=== PATIENT | male | born 1940 | race Caucasian/White ===

== ENCOUNTER → 2020-07-09 | Outpatient (CLI) | payer BC | LOC: CARD 09:00 | PROVIDERS: ATTEND Internal Medicine | DX: I08.0 Rheumatic disorders of both mitral and aortic valves (principal) | CPT/HCPCS: 93306 ==

== ENCOUNTER → 2020-07-16 | Outpatient (CLI) | payer BC ==
[~2020-07-16] VITALS: Ht 177 cm; Wt 102.0 kg
[~2020-07-16] MED LIST: REGADENOSON 0.4 MG/5 ML SYR (LEXISCAN) IV ONE
[2020-07-16] MEDS: CATHETER FLUSH 10 ML SYR IV PRN ×2 (07:03→08:14)
[2020-07-16 08:13] VITALS: BP 143/95
--- NOTE | 2020-07-16 08:16 | NUR ---
only one lexiscan administered. There were two on the oct. I tried to non administer one of them but clicked administered instead.
--- NOTE | 2020-07-16 12:40 | Cardiology Stress Test Report ---
Stress Test Report Date of Procedure/Referring: Date of Procedure: Jul 16, 2020 PCP Kristy jA DO Admitting Physician Kristy Aj DO Indications: Dyspnea Baseline Vital Signs Vital Signs Date Time Temp Pulse Resp B/P (MAP) Pulse Ox O2 Delivery O2 Flow Rate FiO2 07/16/20 08:13 91 14 143/95 (111) 98 Room Air Summary: Patient receive a resting and stress dose of Myoview, images were acquired and reviewed in the short axis view, horizontal long axis view and vertical long axis view. TID: 0.93 SSS: 2 SDS: 2 EF: 54 1. No ischemia or infarction on SPECT images 2. Normal left ventricular size, EF 54 percent SHOLA JAMES MD Jul 16, 2020 12:40
== END ==
LOC: CARD 07:00
PROVIDERS: ATTEND Internal Medicine
DX: R06.00 Dyspnea, unspecified (principal)
CPT/HCPCS: 78452; 93017

== ENCOUNTER → 2022-06-04 | Outpatient (CLI) | payer BC | LOC: CARD 10:00 | PROVIDERS: ATTEND Internal Medicine Cardiovascular Disease | DX: I11.9 Hypertensive heart disease without heart failure (principal) | CPT/HCPCS: 93306 ==

== ENCOUNTER 2022-09-08 08:31 | Day surgery (SDC) | payer BC ==
[~2022-09-08] VITALS: Ht 177.8 cm; Wt 105.5 kg
[2022-09-08] VITALS (12 sets, daily range): BP systolic 95–146; BP diastolic 63–87
[2022-09-08] MEDS ORDERED: LIDOCAINE 1% INJ 20 ML VIAL ONE (08:36)
[2022-09-08] MEDS ORDERED: HEParin (CATH LAB) 2,000 ML IV ONE (08:36)
[2022-09-08] MEDS ORDERED: NS IV 1000 ML 1,000 ML ONE (08:36)
[2022-09-08] MEDS ORDERED: NS IV 1000 ML 1,000 ML IV SCH ×2 (08:45→11:30)
--- NOTE | 2022-09-08 09:02 | Diagnostic Imaging Report ---
EXAM: CHEST 1 VIEW, AP/PA ONLY INDICATION: Dyspnea. COMPARISON: None. FINDINGS: Borderline heart size with normal central pulmonary vascularity. Elevation of the right hemidiaphragm. Mild atelectasis or infiltrate in the right lung base. No pleural effusion or pneumothorax. No acute osseous findings. IMPRESSION: 1. Elevation of the right hemidiaphragm with mild atelectasis or infiltrate right lung base. 2. Borderline heart size with normal pulmonary vascularity. Dictated by: Dictated on workstation # [id number]
[2022-09-08 09:50] LABS: BILIRUBIN,URINE NEGATIVE (NEGATIVE); CLARITY,URINE CLEAR; COLOR,URINE YELLOW; GLUCOSE, URINE (UA) NEGATIVE (NEGATIVE); KETONES,URINE NEGATIVE (NEGATIVE); LEUKOCYTE ESTERASE ,URINE 1+ (NEGATIVE); NITRITE,URINE NEGATIVE (NEGATIVE); PH,URINE 5.5 (5-9); PROTEIN,URINE NEGATIVE (NEGATIVE)
[2022-09-08] MEDS ORDERED: ATOR20TA66 PO (09:56)
[2022-09-08] MEDS ORDERED: METF-397 PO ×2 (09:56→11:29)
[2022-09-08] MEDS ORDERED: ENAL10TA16 PO (09:56)
[2022-09-08] MEDS ORDERED: ACET325T38 PO (09:56)
[2022-09-08] MEDS ORDERED: MELO15TA39 PO (09:56)
[2022-09-08] MEDS ORDERED: ASPI-1238 PO (09:56)
[2022-09-08] MEDS ORDERED: CALC-250 PO (09:56)
[2022-09-08] MEDS ORDERED: CLOT15CR28 TP (09:56)
[2022-09-08] MEDS ORDERED: ALLO300T2 PO (09:56)
[2022-09-08] MEDS ORDERED: CITA20TA9 PO (09:56)
[2022-09-08] MEDS ORDERED: FINA5TAB6 PO (09:56)
[2022-09-08] MEDS ORDERED: VENL75CA93 PO (09:56)
[2022-09-08] MEDS ORDERED: BACI1PAC28 TP (09:56)
[2022-09-08 09:58] LABS: HEMATOCRIT 36 % (40-54); HEMOGLOBIN 11.4 g/dL (13.3-17.7); MEAN CORPUSCULAR HEMOGLOBIN 31 pg (25-34); MEAN CORPUSCULAR HGB CONC 31 g/dL (32-36); MEAN CORPUSCULAR VOLUME 98 fL (80-99); MEAN PLATELET VOLUME 10.6 fL (9.0-12.2); PLATELET COUNT 227 10^3/uL (130-400); WHITE BLOOD COUNT 6.7 10^3/uL (4.3-11.0)
[2022-09-08] MEDS ORDERED: fentaNYL INJ 100 MCG/2 ML AMP ONE (10:00)
[2022-09-08] MEDS ORDERED: VERAPAMIL 5 MG/2 ML (CALAN) VIAL IV ONE (10:00)
[2022-09-08] MEDS ORDERED: MIDAZOLAM 5 MG/5 ML (VERSED) VIAL ONE (10:01)
[2022-09-08] MEDS ORDERED: HEParin 1000 UNIT/ML (10ML VIAL) FOR BOLUS ONE (10:01)
[2022-09-08] MEDS ORDERED: NITRO DRIP 25000 MCG/D5W 250 ML IV ONE (10:01)
[2022-09-08 10:02] LABS: BACTERIA,URINE NEGATIVE /HPF; SQUAMOUS EPITHELIAL CELL,UR RARE /HPF; WBC,URINE RARE /HPF
[2022-09-08 10:05] LABS: INR 0.9 (0.8-1.4); PROTHROMBIN TIME PATIENT 12.9 SEC (12.2-14.7)
[2022-09-08 10:13] LABS: ALBUMIN 3.7 GM/DL (3.2-4.5); BILIRUBIN,TOTAL 0.7 MG/DL (0.1-1.0); CALCIUM 10.1 MG/DL (8.5-10.1); CREATININE SERUM 1.03 MG/DL (0.60-1.30); TOTAL PROTEIN 6.8 GM/DL (6.4-8.2)
--- NOTE | 2022-09-08 10:20 | Cardiac Procedure Note-CS/ASA ---
Pre-Procedure Note Pre-Op Procedure Note Date of Available H&P: Aug 26, 2022 Date H&P Reviewed: Sep 08, 2022 Time H&P Reviewed: 10:19 History & Physical: H&P Reviewed, Patient Examed, No changes noted Pre-Operative Diagnosis: CAD Conscious Sedation Pre-Proced Time 10:20 ASA Score 3 For ASA 3 and 4: Consider anesthesia and medical clearance. Also, for patients with a history of failed moderate sedation consider anesthesia. Airway Lungs Heart ASA score ASA 1: a normal healthy patient ASA 2: a patient with a mild systemic disease (mid diabetes, controlled hypertension, obesity ASA 3: a patient with a severe systemic disease that limits activity (angina, COPD, prior Myocardial infarction) ASA 4: a patient with an incapacitating disease that is a constant threat to life (CHF, renal failure) ASA 5: a moribund patient not expected to survive 24 hrs. (ruptured aneurysm) ASA 6: a declared brain- patient whose organs are being harvested. For emergent operations, add the letter E after the classification Mallampati Classification Grade 3 Sedation Plan Analgesia, Amnesia, Plan communicated to team members, Discussed options with patient/fam, Discussed risks with patient/fam The patient is an appropriate candidate to undergo the planned procedure, sedation, and anesthesia. The patient immediately re-assessed prior to indication. SHOLA JAMES MD Sep 08, 2022 10:20
--- NOTE | 2022-09-08 11:30 | Discharge Inst-Post CATH ---
Discharge Inst-CATH/EP Problems Reviewed?: Yes Post Cardiac Cath/EP D/C Inst Follow Up/Plan Hold metformin for [address] Gr's office in 2 to 4 weeks <b>CARDIAC CATH/EP PROCEDURE DISCHARGE INSTRUCTIONS</b> ACTIVITY * Go Home directly and rest. * Limit activity of the leg (or wrist if it was used) for 7 days including aerobics, swimming, jogging, bicycling, etc. * Restrict stair-climbing for 7 days if possible, if not, climb up with your non-cath leg, then bring together on the same step. * Avoid lifting, pushing, pulling or excessive movement of the affected extremity for 7 days. * Customary sexual activity may be resumed after 2 days-use caution not to use a position that strains or causes pain to the affected extremity. * No driving for 24 hours. * NO SMOKING. * Avoid straining for bowel movements for 7 days. * Gentle walking on level ground is allowed. * Returning to work will depend on the type of procedure and the results. Your doctor will discuss this with you. CALL YOUR DOCTOR FOR ANY OF THE FOLLOWING: *If bleeding from the puncture site occurs- Apply gentle pressure to site with clean cloth and call your doctor or EMS. * If a knot or lump forms under the skin, increases in size, or causes pain. * If bruising appears to be worsening or moving further down your leg instead of disappearing. * Temperature above 101 F. CARE OF YOUR GROIN INCISION; * Bruising or purple discoloration of the skin near the puncture site is common. * You may shower only, no bathtub bathing for 5 days. Be careful to avoid slipping as your leg may feel stiff. * If a closure device was used on your femoral artery, please see the attached guide regarding care of the device and your leg. * Leave dressing on FOR 24 hours. CARE OF YOUR WRIST INCISION; * Bruising or purple discoloration of the skin near the puncture site is common. * You may shower. * DO NOT submerge wrist. * Leave dressing on FOR 24 hours. SHOLA GR MD Sep 08, 2022 11:30
--- NOTE | 2022-09-08 11:34 | Cardiac Cath Report ---
Cardiac Cath Report Physician (s)/Featheredge Machine Operator (s) Physician SHOLA JAMES MD Pre-Procedure Diagnosis Pre-Procedure Diagnosis: CAD Post-Procedure Note Procedure Start Date: Sep 08, 2022 Procedure Start Time: 11:30 Name of Procedure: Coronary angiogram Aortic root angiogram Aortic arch angiogram Findings/Procedure Note PROCEDURE NOTE: 81-year-old gentleman with aortic valve stenosis scheduled for cardiac catheterization possible PTCA. After explaining the procedure to the patient, all pros and cons were explained, all questions were answered. The patient signed the consent and then he was placed in the cardiac catheterization laboratory. Groin was prepped in SL fashion local anesthesia was used. Sheath placed in the right radial artery, [place] catheter was advanced and engaged the right and left coronary system, could not cross the aortic valve I attempted with Storq wire. Then placed the catheter in the aortic root and aortic root angiogram was done then pulled back to the aortic arch and aortic arch angiogram was done At the end of the procedure the sheath was removed. Vascular band was used FINDINGS: Hemodynamics LV did not cross the aortic valve Aorta 95/83 mean of 74 ANATOMY: Left Main is free of obstructive disease Left Anterior Descending slightly tortuous with mild disease nonobstructive disease Left Circumflex is dominant artery moderate in size with mild disease nonobstructive disease Ramus intermedius/high obtuse marginal branch has ostial 80 to 90% stenosis, the artery is about 1.5 to 2 mm in diameter. Right Coronary Artery is small nondominant artery with no obstructive disease Aortic root angiogram showed calcification of the aortic root and calcification of the aortic valve no dissection or aneurysm Aortic arch angiogram showed calcified aortic arch, no aneurysm or dissection. Origin of the brachiocephalic artery showed some tortuosity with no obstructive disease left carotid artery and left subclavian has no obstructive disease CONCLUSION: 1. 80 to 90% stenosis in the ostium of ramus intermedius/high obtuse marginal branch, smaller artery about 1.5 to 2 mm in diameter. 2. Otherwise nonobstructive disease with dominant circumflex system 3. Normal aortic root and aortic arch with calcification, no dissection or aneurysm DISCUSSION AND RECOMMENDATION: Patient has severe aortic valve stenosis scheduled for TAVR, will review his coronary anatomy, continue to maximize medical therapy. We will consider intervention on the ostium of the ramus intermedius if needed in the future Anesthesia Type: Conscious Sedation Estimated blood loss (mL): 20 ml Contrast Amount: 70 ml Total Radiation Dose: 502 mGy Post-Procedure Diagnosis Post-operative diagnosis: Aortic valve stenosis Coronary artery disease Hypertension Hyperlipidemia. SHOLA JAMES MD Sep 08, 2022 11:34
[2022-09-08] MEDS ORDERED: ACETAMINOPHEN 325 MG TABLET PO PRN (16:00)
[2022-09-08] MEDS ORDERED: VENlafaxine XR 75 MG (EFFEXOR XR) CAP PO SCH (17:00)
[2022-09-08] MEDS ORDERED: ENALAPRIL 10 MG (VASOTEC) TAB PO SCH (17:00)
[2022-09-08] MEDS ORDERED: ASPIRIN E.C. 81 MG (ECOTRIN) TAB PO SCH (17:00)
[2022-09-08] MEDS ORDERED: ALLOPURINOL 300 MG (ZYLOPRIM) TAB PO SCH (17:00)
[2022-09-08] MEDS ORDERED: FINASTERIDE (PROSCAR) 5 MG TAB PO SCH (21:00)
[2022-09-08] MEDS ORDERED: BACITRACIN ZINC TP SCH (21:00)
[2022-09-08] MEDS: BACITRACIN OINTMENT 28 GM TUBE TOP SCH (22:26)
[2022-09-09 03:36] VITALS: BP 123/65
[2022-09-09 07:59] VITALS: BP 146/65
--- NOTE | 2022-09-09 08:17 | Cardiology Progress Note ---
Subjective Date Seen by Provider: Sep 09, 2022 Time Seen by Provider: 08:15 Subjective/Events-last exam Patient was seen at bedside, sitting comfortably, no new complaint. Ready to go home Review of Systems General: No Chills, No Night Sweats, No Fatigue, No Malaise, No Appetite, No Other HEENT: No Head Aches, No Visual Changes, No Eye Pain, No Ear Pain, No Dysphas ia, No Sinus Congestion, No Post Nasal Drip, No Sore Throat, No Other Pulmonary: Dyspnea; No Cough, No Pleuritic Chest Pain, No Other Cardiovascular: No: Chest Pain, Palpitations, Orthopnea, Paroxysmal Noc. Dyspnea, Edema, Lt Headedness, Other Objective-Cardiology Exam Last Set of Vital Signs Vital Signs 09/09/22 07:59 Temp 36.5 Pulse 80 Resp 18 B/P (MAP) 146/65 (92) Pulse Ox 98 O2 Delivery Room Air I&O Intake and Output 09/08/22 23:59 Intake Total 240 ml Balance 240 ml Intake Oral 240 ml General: Alert, Oriented X3, Cooperative HEENT: Atraumatic, PERRLA Neck: Supple, No JVD, No Thyromegaly Lungs: Clear to Auscultation, Normal Air Movement Heart: Regular Rate, Normal S1, Normal S2, No Murmurs Abdomen: Normal Bowel Sounds, Soft, No Tenderness, No Hepatosplenomegaly, No Masses Extremities: No Clubbing, No Cyanosis, No Edema, Normal Pulses, No Tenderness/Swelling Skin: No Rashes, No Breakdown, No Significant Lesion Neuro: Normal Gait, Normal Speech, Strength at 5/5 X4 Ext, Normal Tone, Sensation Intact Psych/Mental Status: Mental Status NL, Mood NL Results Lab Laboratory Tests 09/08/22 09:35 A/P-Cardiology Admission Diagnosis Coronary artery disease Hypertension Hyperlipidemia. Assessment/Plan Coronary artery disease, 80 to 90% ostial ramus intermedius branch stenosis the artery is fairly small not amendable to intervention, conservative management is recommended Hypertension, continue to monitor blood pressure Hyperlipidemia, maintained on Lipitor 20 mg daily Diabetes mellitus, instructed to hold metformin for 48 hours Planning for discharge and follow-up as an outpatient SHOLA JAMES MD Sep 09, 2022 08:16
[2022-09-09] MEDS: BACITRACIN OINTMENT 28 GM TUBE TOP SCH (08:57)
[2022-09-09] MEDS ORDERED: NON-FORMULARY MEDICATION 1 EA EA (Meloxicam 15 MG) PO SCH (09:00)
[2022-09-09] MEDS ORDERED: MELOXICAM 7.5 MG (MOBIC) TABLET PO SCH (09:00)
[2022-09-09] MEDS ORDERED: VITAMIN D3 125 MCG (5,000 UNITS) CAPSULE PO SCH (09:00)
== END 2022-09-09 09:08 | disposition home or self-care (01) ==
LOC: CATH 08:31 → SDC 11:43 → 4TH 14:40 → EDPENDDISDT 09-09 08:00 → EDPENDDISTM 09-09 08:00 → CATH 09-09 09:08
PROVIDERS: ATTEND Internal Medicine Cardiovascular Disease
DX: I35.0 Nonrheumatic aortic (valve) stenosis (principal); I25.10 Atherosclerotic heart disease of native coronary artery without angina pectoris; I10 Essential (primary) hypertension; E78.2 Mixed hyperlipidemia; I49.3 Ventricular premature depolarization; E11.9 Type 2 diabetes mellitus without complications; F32.A Depression, unspecified; R53.83 Other fatigue; M48.00 Spinal stenosis, site unspecified; I65.23 Occlusion and stenosis of bilateral carotid arteries; Z87.891 Personal history of nicotine dependence; Z79.899 Other long term (current) drug therapy; Z79.84 Long term (current) use of oral hypoglycemic drugs
CPT/HCPCS: 36221; 36415; 71045; 80053; 80061; 81000; 85027; 85610; 85730; 87081; 93005; 93454; 93567

== ENCOUNTER 2023-05-21 21:10 | Inpatient (IN) | payer MEDICARE, BC ==
[~2023-05-21] VITALS: Ht 180.3 cm; Wt 104.3 kg
[~2023-05-21 21:10] MED LIST changes: +ACET325T38 PO; +ALLO300T2 PO; +ASPI-1238 PO; +ATOR20TA66 PO; +BACI1PAC28 TP; +CALC-250 PO; +CITA20TA9 PO; +CLOT15CR28 TP; +ENLP10T PO; +FINA5TAB6 PO; +MELO15TA39 PO; +METF-397 PO; -REGADENOSON 0.4 MG/5 ML SYR (LEXISCAN) IV ONE; +VENL75CA93 PO
[2023-05-21] MEDS ORDERED: ACETAMINOPHEN 500 MG TABLET PO PRN (21:45)
[2023-05-21 23:23] VITALS: BP 134/71
[2023-05-22] MEDS: D5 NS 1,000 ML IV SOLN 1,000 ML IV SCH ×4 (00:03→19:22)
[2023-05-22 03:30] VITALS: BP 110/57
[2023-05-22 06:06] LABS: POTASSIUM 4.2 MMOL/L (3.6-5.0)
[2023-05-22 06:07] LABS: CALCIUM 9.5 MG/DL (8.5-10.1)
[2023-05-22 06:11] LABS: CREATININE SERUM 1.43 MG/DL (0.60-1.30)
[2023-05-22] MEDS: VENlafaxine XR 75 MG (EFFEXOR XR) CAP PO SCH (06:16)
[2023-05-22] MEDS ORDERED: diphenhydrAMINE INJ 50 MG/ML VIAL IVP PRN (07:15)
[2023-05-22] MEDS ORDERED: ANTACID SUSPENSION 30 ML UDC PO PRN (07:15)
[2023-05-22] MEDS ORDERED: CALCIUM CARBONATE 500 MG CHEW TABLET PO PRN (07:15)
[2023-05-22] MEDS ORDERED: diphenhydrAMINE 25 MG TABLET PO PRN (07:15)
[2023-05-22] MEDS ORDERED: HYDROmorphone INJECTION 2 MG/ML VIAL IV PRN (07:15)
[2023-05-22] MEDS ORDERED: LACTULOSE SYRUP 10GM/15ML 30ML UDC PO PRN (07:15)
[2023-05-22] MEDS ORDERED: ONDANSETRON INJECTION 4 MG/2 ML (SDV) IV PRN (07:15)
[2023-05-22] MEDS ORDERED: ONDANSETRON 4 MG ORAL DISSOLVE TABLET PO PRN (07:15)
[2023-05-22] MEDS ORDERED: ACETAMINOPHEN 325 MG TABLET PO PRN (07:15)
[2023-05-22] MEDS ORDERED: BISACODYL 10 MG SUPPOSITORY PR PRN (07:15)
[2023-05-22] MEDS ORDERED: MILK OF MAGNESIA 400 MG/5 ML 30 ML UDC PO PRN (07:15)
[2023-05-22 07:21] LABS: BASOPHILS % (AUTO) 0 % (0-10); EOSINOPHILS % (AUTO) 0 % (0-10); HEMATOCRIT 31 % (40-54); HEMOGLOBIN 10.2 g/dL (13.3-17.7); LYMPHOCYTES # (AUTO) 1.1 10^3/uL (1.0-4.0); LYMPHOCYTES % (AUTO) 8 % (12-44); MEAN CORPUSCULAR HEMOGLOBIN 31 pg (25-34); MEAN CORPUSCULAR HGB CONC 33 g/dL (32-36); MEAN CORPUSCULAR VOLUME 93 fL (80-99); MEAN PLATELET VOLUME 10.9 fL (9.0-12.2); MONOCYTES % (AUTO) 7 % (0-12); NEUTROPHILS # (AUTO) 12.1 10^3/uL (1.8-7.8); NEUTROPHILS % (AUTO) 84 % (42-75); PLATELET COUNT 185 10^3/uL (130-400); WHITE BLOOD COUNT 14.3 10^3/uL (4.3-11.0)
[2023-05-22 07:24] LABS: ALBUMIN 3.3 GM/DL (3.2-4.5); POTASSIUM 4.2 MMOL/L (3.6-5.0)
[2023-05-22 07:25] LABS: CALCIUM 9.6 MG/DL (8.5-10.1)
[2023-05-22 07:26] LABS: TOTAL PROTEIN 5.8 GM/DL (6.4-8.2)
[2023-05-22 07:28] LABS: BILIRUBIN,TOTAL 1.9 MG/DL (0.1-1.0)
[2023-05-22 07:30] LABS: CREATININE SERUM 1.41 MG/DL (0.60-1.30)
[2023-05-22 07:39] VITALS: BP 134/68
[2023-05-22 08:19] LABS: BAND NEUTROPHILS 0 %; BASOPHILS % (MANUAL) 0 %; EOSINOPHILS % (MANUAL) 0 %; LYMPHOCYTES % (MANUAL) 6 %; MONOCYTES % (MANUAL) 5 %; NEUTROPHILS % (MANUAL) 89 %; RBC MORPH NORMAL
[2023-05-22] MEDS: SENNOSIDES 8.6 MG TABLET PO SCH ×2 (08:22→19:22)
[2023-05-22] MEDS: DOCUSATE SODIUM 100 MG CAPSULE PO SCH ×2 (08:22→19:22)
--- NOTE | 2023-05-22 11:47 | History & Physical ---
History of Present Illness HPI/Chief Complaint CC: Acute rhabdomyloysis after being found down outside for 22 hours HPI: This is an 82yoWM clinic patient of mine for the past 8 years who has a h/o HTN. HLP, DM and aortic stenosis who presented to [facility] after found down outside by his neighbor after he was heard crying out for help. Apparently he fell outside ~630pm Tuesday night and remained on the ground unable to get up until EMS was called. Rhabdomyolysis dx in [facility] and was found to need higher level of care so [facility] accepted transfer. He is currently resting but does become alert and tells me he is hungry. Daughter in [place] called to check on him. Source: patient, RN/MD, old records Exam Limitations: clinical condition Date Seen 05/22/23 Time Seen by a Provider: 11:00 Attending Physician Kristy Aj DO PCP Admitting Physician: Willis Rogel MD Attending Physician: Kristy Aj DO Referring Physician Date of Admission May 21, 2023 at 23:14 Home Medications & Allergies Home Medications Reviewed patient Home Medication Reconciliation performed by pharmacy medication reconciliations central processing technician and/or nursing. Patients Allergies have been reviewed. Allergies Allergies Coded Allergies No Allergy Information Available (Vamqpzndna63/2/20) Past Tnwlmpk-Fpoltg-Adcglg Hx Past Med/Social Hx: Reviewed Nursing Past Med/Soc Hx, Reviewed and Corrections made Patient Social History Marrital Status: Alcohol Use: Rarely Uses Smoking Status: Former Smoker Past Medical History Surgeries: Tonsillectomy Cardiac: Heart Murmur, High Cholesterol, Hypertension, Valvular Heart Disease Neurological: Neuropathy Musculoskeletal: Chronic Back Pain Psychosocial: Depression Review of Systems Constitutional: see HPI, malaise, weakness EENTM: no symptoms reported Respiratory: no symptoms reported Cardiovascular: no symptoms reported Gastrointestinal: no symptoms reported Genitourinary: no symptoms reported Musculoskeletal: back pain, joint pain Skin: no symptoms reported Psychiatric/Neurological: No Symptoms Reported All Other Systems Reviewed Negative Unless Noted: Yes Physical Exam Physical Exam Vital Signs Vital Signs - First Documented 05/21/23 05/21/23 23:14 23:23 Temp 37.6 Pulse 90 Resp 20 B/P (MAP) 134/71 (92) Pulse Ox 98 O2 Delivery Room Air Capillary Refill : Height, Weight, BMI Height: '" Weight: lbs. oz. kg; 31.37 BMI Method: General Appearance: No Apparent Distress, WD/WN, Chronically ill Eyes: Bilateral Eye Normal Inspection, Bilateral Eye PERRL HEENT: PERRL/EOMI, Normal ENT Inspection, Pharynx Normal Neck: Full Range of Motion, Normal Inspection, Non Tender, Supple, Carotid Bruit Respiratory: Chest Non Tender, Lungs Clear, Normal Breath Sounds, No Accessory Muscle Use, No Respiratory Distress Cardiovascular: Regular Rate, Rhythm, No Edema, No Gallop, No JVD, No Murmur, Normal Peripheral Pulses Gastrointestinal: Normal Bowel Sounds, No Organomegaly, No Pulsatile Mass, Non Tender, Soft Back: Normal Inspection, No CVA Tenderness, No Vertebral Tenderness Extremity: Normal Capillary Refill, Normal Inspection, Normal Range of Motion (limited due to pain "everywhere"), Non Tender, No Calf Tenderness, No Pedal Edema Neurologic/Psychiatric: Alert, Oriented x3, No Motor/Sensory Deficits, Normal Mood/Affect, purchaser II-XII Norm as Tested, Motor Weakness (generalized) Skin: Normal Color, Warm/Dry Lymphatic: No Adenopathy Results Results/Procedures Labs Laboratory Tests 05/22/23 05:40 Patient resulted labs reviewed. Assessment/Plan Admission Diagnosis Assessment: Found down outside after 22 hours Acute rhabdomylosis THIAGO HTN HLP DM Chronic lumbar stenosis Neuropathy Falls Plan: IVF Pain control PT OT Monitor creat Admission Status: Inpatient Order (span 2 midnights) (mahnaz) Reason for Inpatient Admission: KRISTY Gonsalez DO May 22, 2023 11:47
[2023-05-22 11:58] VITALS: BP 122/68
[2023-05-22 16:04] VITALS: BP 128/69
[2023-05-22 16:13] VITALS: BP 128/69
[2023-05-22] MEDS ORDERED: RT-Ipratropium/Albuterol NEB 3 ML VIAL INH PRN (16:15)
[2023-05-22 19:20] VITALS: BP 153/72
[2023-05-22] MEDS: MELATONIN 3 MG TABLET PO PRN (19:22)
[2023-05-22] MEDS: ALLOPURINOL 300 MG TABLET PO SCH (19:22)
[2023-05-22] MEDS: oxyCODONE IMMEDIATE RELEASE 5 MG TABLET PO PRN (21:36)
[2023-05-23] VITALS (7 sets, daily range): BP systolic 98–165; BP diastolic 55–77
[2023-05-23] MEDS: VENlafaxine XR 75 MG (EFFEXOR XR) CAP PO SCH (05:23)
[2023-05-23] MEDS: D5 NS 1,000 ML IV SOLN 1,000 ML IV SCH ×2 (05:23→15:16)
[2023-05-23 06:01] LABS: BASOPHILS % (AUTO) 0 % (0-10); EOSINOPHILS # (AUTO) 0.2 10^3/uL (0.0-0.3); EOSINOPHILS % (AUTO) 2 % (0-10); HEMATOCRIT 30 % (40-54); HEMOGLOBIN 9.7 g/dL (13.3-17.7); LYMPHOCYTES # (AUTO) 1.3 10^3/uL (1.0-4.0); LYMPHOCYTES % (AUTO) 13 % (12-44); MEAN CORPUSCULAR HEMOGLOBIN 31 pg (25-34); MEAN CORPUSCULAR HGB CONC 33 g/dL (32-36); MEAN CORPUSCULAR VOLUME 94 fL (80-99); MEAN PLATELET VOLUME 10.9 fL (9.0-12.2); MONOCYTES # (AUTO) 0.8 10^3/uL (0.0-1.0); MONOCYTES % (AUTO) 8 % (0-12); NEUTROPHILS # (AUTO) 7.5 10^3/uL (1.8-7.8); NEUTROPHILS % (AUTO) 76 % (42-75); PLATELET COUNT 156 10^3/uL (130-400); WHITE BLOOD COUNT 9.9 10^3/uL (4.3-11.0)
[2023-05-23 06:14] LABS: POTASSIUM 3.8 MMOL/L (3.6-5.0)
[2023-05-23 06:15] LABS: CALCIUM 9.2 MG/DL (8.5-10.1)
[2023-05-23 06:16] LABS: TOTAL PROTEIN 5.4 GM/DL (6.4-8.2)
[2023-05-23 06:18] LABS: BILIRUBIN,TOTAL 1.1 MG/DL (0.1-1.0)
[2023-05-23 06:20] LABS: CREATININE SERUM 1.1 MG/DL (0.60-1.30)
[2023-05-23] MEDS: SENNOSIDES 8.6 MG TABLET PO SCH ×2 (07:58→19:19)
[2023-05-23] MEDS: DOCUSATE SODIUM 100 MG CAPSULE PO SCH ×2 (07:59→19:19)
--- NOTE | 2023-05-23 09:52 | Physical Therapy Evaluation ---
PT Evaluation-General Medical Diagnosis Admission Date May 21, 2023 at 23:14 Medical Diagnosis: rhabdomyolysis/THIAGO Onset Date: May 20, 2023 Therapy Diagnosis Therapy Diagnosis: impaired mobility/generalized weakness Precautions Precautions/Isolations: Fall Prevention, Standard Precautions Referral Physician: Jean Marie Reason for Referral: Evaluation/Treatment Medical History Pertinent Medical History: DM, HTN Current History EMS found outside x 22 hours Reviewed History: Yes Social History Home: Single Level Current Living Status: Alone PT Steps Into Home: 3 Prior Prior Level of Function SCALE: Activities may be completed with or without assistive devices. 7-Cybpnbzsjg-tuquhil completes the activity by him/herself with no assistance f rom a helper. 5-Set-up or Clean-up Assistance-helper sets up or cleans up; patient completes activity. Mims assists only prior to or following the activity. 4-Supervision or Touching Assistance-helper provides verbal cues and/or touching/steadying and/or contact guard assistance as patient completes activity. Assistance may be provided throughout the activity or intermittently. 3-Partial/Moderate Assistance-helper does LESS THAN HALF the effort. Mims lifts, holds or supports trunk or limbs, but provides less than half the effort. 2-Substantial/Maximal Assistance-helper does MORE THAN HALF the effort. Mims lifts or holds trunk or limbs and provides more than half the effort. 5-Eeevevbrl-lwdqnv does ALL the effort. Patient does none of the effort to complete the activity. Or, the assistance of 2 or more helpers is required for the patient to complete the activity. If activity was not attempted, code reason: 7-Patient Refused. 9-Not Applicable-not attempted and the patient did not perform the activity before the current illness, exacerbation or injury. 10-Not Attempted due to Environmental Limitations-(lack of equipment, weather restraints, etc.). 88-Not Attempted due to Medical Conditions or Safety Concerns. Bed Mobility: 6 Transfers (B,C,W/C): 6 Gait: 6 Stairs: 6 Indoor Mobility (Ambulation): Independent Stairs: Independent Prior Devices Use: Walker (4WW) PT Evaluation-Current Subjective Patient agrees to therapy. Objective Patient Orientation: Person, Place, Time, Situation Attachments: Evans Catheter, IV ROM/Strength ROM Lower Extremities bilateral LE WFL Strength Lower Extremities 4-/5 grossly bilateral LE all planes Integumentary/Posture Bladder Incontinence: Evans Cath Posture slightly kyphotic Neuromuscular (Tone, Coordination, Reflexes) grossly intact Sensory Vision: Wears Glasses Hearing: Impaired Transfers Sit to Stand (QC): 4 Chair/Ics-yp-Vhsde Xfer(QC): 4 Gait Mode of Locomotion: Walk Anticipated Mode of Locomotion: Walk Walk 10 feet (QC): 4 Walk 50 ft with 2 Turns(QC): 4 Walk 150 ft (QC): 4 Distance: 250' Gait Assistive Device: FWW Comments/Gait Description shuffle gait sequence/NBOS/decreased patsy Balance Sitting Static: Normal Sitting Dynamic: Normal Standing Static: Fair Standing Dynamic: Fair Assessment/Needs Patient will benefit from skilled PT to address functional strength and mobility to improve current LOF to safely return to home at maximum LOF. Rehab Potential: Fair PT Truck Dock Material Mover Goals Intermediate Goals PT Truck Dock Material Mover Goals Time Frame: Jun 04, 2023 Roll Left & Right (QC): 6 Sit to Lying (QC): 6 Lying-Sitting on Side/Bed(QC): 6 Sit to Stand (QC): 6 Chair/Mtz-vl-Esbrc Xfer(QC): 6 Toilet Transfer (QC): 6 Walk 10 feet (QC): 5 Walk 50ft with 2 Turns (QC): 5 Walk 150 ft (QC): 5 PT Plan Problem List Problem List: Activity Tolerance, Functional Strength, Safety, Balance, Gait, Transfer, Bed Mobility Treatment/Plan Treatment Plan: Continue Plan of Care Treatment Plan: Bed Mobility, Education, Functional Activity Cole, Functional Strength, Gait, Safety, Therapeutic Exercise, Transfers Treatment Duration: Jun 04, 2023 Frequency: 6 times per week Estimated Hrs Per Day: .25 hour per day Patient and/or Family Agrees t: Yes Time Time In: 830 Time Out: 847 DATE: May 23, 2023 Total Billed Treatment Time: 17 Total Billed Treatment [facility] min STACY TAYLOR PT May 23, 2023 09:52
[2023-05-23] MEDS ORDERED: METF-397 PO (10:19)
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
--- NOTE | 2023-05-23 11:41 | Progress Note ---
LENORA HOYOS 05/23/23 1141: Subjective Date Seen by a Provider: May 23, 2023 Time Seen by a Provider: 09:20 Subjective/Events-last exam 05/23/2023: CC: Rhabdomyolysis HPI: Jadon, 82M, notes that last night he slept okay. He said that he feels much better. He notes that he is having some back pain , but this is a chronic issue. He rates the back pain at a 6/10. He also notes that his L ear is draining some fluid. He says that he has ear issues like this at time. He says that the drainage is green/yellow and smells poorly. He notes that he was slightly upset about having fallen that that it was scary. He says that he feels stable today and able to walk around. He says that he uses a walker at times when out and about, but not at home. He notes that he has no light headedness, no dizziness, no confusion, no N/V. He says that his only issues currently are his back and L- ear. He hasn't had a bowel movement in the hospital. No other concerns. Review of Systems General: No Chills, No Night Sweats; Fatigue; No Malaise, No Appetite, No Other HEENT: No Head Aches, No Visual Changes, No Eye Pain; Ear Pain; No Dysphasia, No Sinus Congestion, No Post Nasal Drip, No Sore Throat, No Other Pulmonary: No Dyspnea, No Cough, No Pleuritic Chest Pain, No Other Cardiovascular: No: Chest Pain, Palpitations, Orthopnea, Paroxysmal Noc. Dyspnea, Edema, Lt Headedness, Other Gastrointestinal: No: Nausea, Vomiting, Abdominal Pain, Diarrhea, Constipation, Melena, Hematochezia, Other Genitourinary: No Dysuria, No Frequency, No Incontinence, No Hematuria, No Retention, No Other Musculoskeletal: No: other, neck pain, shoulder pain, arm pain, back pain, hand pain, leg pain, foot pain Neurological: No: Weakness, Numbness, Incoordination, Change in speech, Confusion, Seizures, Other Objective Exam Last Set of Vital Signs Vital Signs Date Time Temp Pulse Resp B/P (MAP) Pulse Ox O2 Delivery O2 Flow Rate FiO2 05/23/23 08:51 36.9 89 20 122/76 (91) 97 Room Air Capillary Refill : I&O Intake and Output 05/23/23 00:00 Intake Total 4040 ml Output Total 2250 ml Balance 1790 ml Intake Oral 1040 ml IV Total 3000 ml Output Urine Total 2250 ml General: Alert, Oriented X3, Cooperative HEENT: PERRLA, EOMI, Other (L- ear external otitis, drainage, contents ) Neck: Supple, No JVD, No Thyromegaly Lungs: Normal Air Movement Heart: Regular Rate, Other (nurys/decres systolic murmur at R-sternal border rib space 2. ) Abdomen: Normal Bowel Sounds, Soft Extremities: No Clubbing, No Cyanosis, No Edema, Normal Pulses, No Ten derness/Swelling Skin: No Rashes, No Breakdown, No Significant Lesion Neuro: Normal Gait, Normal Speech, Strength at 5/5 X4 Ext, Normal Tone Results Lab Laboratory Tests 05/23/23 05:20: White Blood Count 9.9, Red Blood Count 3.17L, Hemoglobin 9.7L, Hematocrit 30L, Mean Corpuscular Volume 94, Mean Corpuscular Hemoglobin 31, Mean Corpuscular Hemoglobin Concent 33, Red Cell Distribution Width 13.2, Platelet Count 156, Mean Platelet Volume 10.9, Immature Granulocyte % (Auto) 1, Neutrophils (%) (Auto) 76H, Lymphocytes (%) (Auto) 13, Monocytes (%) (Auto) 8, Eosinophils (%) (Auto) 2, Basophils (%) (Auto) 0, Neutrophils # (Auto) 7.5, Lymphocytes # (Auto) 1.3, Monocytes # (Auto) 0.8, Eosinophils # (Auto) 0.2, Basophils # (Auto) 0.0, I mmature Granulocyte # (Auto) 0.1, Sodium Level 134L, Potassium Level 3.8, Chloride Level 108H, Carbon Dioxide Level 19L, Anion Gap 7, Blood Urea Nitrogen 29H, Creatinine 1.10, Estimat Glomerular Filtration Rate 67, BUN/Creatinine Ratio 26, Glucose Level 186H, Calcium Level 9.2, Corrected Calcium 10.0, Total Bilirubin 1.1H, Aspartate Amino Transf (AST/SGOT) 135H, Alanine Aminotransferase (ALT/SGPT) 56H, Alkaline Phosphatase 49, Total Creatine Kinase 1075H, Total Protein 5.4L, Albumin 3.0L Assessment/Plan Assessment/Plan Assess & Plan/Chief Complaint 05/23/2023: A/P: -Rhabdomyolysis * IVF * Monitor CK -THIAGO * IVF * Monitor BUN and Cr -Lumbar Pain * Oxycodone -Otitis Externa * Ocuflox 2 drops x 7 days -Hypotension * IVF, hold BP medications -Aortic Stenosis KRISTY PATEL DO 05/23/23 2018: Subjective Subjective/Events-last exam Improved overall Walking well with walker and therapy CPK decreased Objective Exam General: Alert, Oriented X3, Cooperative, No Acute Distress Lungs: Clear to Auscultation, Normal Air Movement Heart: Regular Rate, Normal S1, Normal S2, No Murmurs Psych/Mental Status: Mental Status NL, Mood NL Assessment/Plan Assessment/Plan Assess & Plan/Chief Complaint IVF Ear drops Supervisory-Addendum Brief Verification & Attestation Participated in pt care: history, MDM, physical Personally performed: exam, history, MDM, supervision of care Care discussed with: Medical Student Procedures: n/a Results interpretation: Verified all documentation Verification and Attestation of Medical Student E/M Service A medical student performed and documented this service in my presence. I reviewed and verified all information documented by the medical student and made modifications to such information, when appropriate. I personally performed the physical exam and medical decision making. Kristy Patel May 23, 2023,20:17 LENORA HOYOS May 23, 2023 11:41 KRISTY PATEL DO May 23, 2023 20:18
[2023-05-23] MEDS: OFLOXACIN 0.3% OPHTH SOLN 5 ML OP SCH ×2 (12:17→19:23)
[2023-05-23] MEDS: oxyCODONE IMMEDIATE RELEASE 5 MG TABLET PO PRN (19:19)
[2023-05-23] MEDS: MELATONIN 3 MG TABLET PO PRN (19:19)
[2023-05-23] MEDS: ALLOPURINOL 300 MG TABLET PO SCH (19:19)
[2023-05-23] MEDS ORDERED: OFLOXACIN 0.3% LEFT EAR SCH (21:00)
[2023-05-24 03:29] VITALS: BP 147/78
[2023-05-24] MEDS: VENlafaxine XR 75 MG (EFFEXOR XR) CAP PO SCH (05:32)
[2023-05-24] MEDS: D5 NS 1,000 ML IV SOLN 1,000 ML IV SCH (05:32)
[2023-05-24 06:04] LABS: BASOPHILS # (AUTO) 0.1 10^3/uL (0.0-0.1); BASOPHILS % (AUTO) 0 % (0-10); EOSINOPHILS # (AUTO) 0.3 10^3/uL (0.0-0.3); EOSINOPHILS % (AUTO) 3 % (0-10); HEMATOCRIT 32 % (40-54); HEMOGLOBIN 10.5 g/dL (13.3-17.7); LYMPHOCYTES # (AUTO) 1.1 10^3/uL (1.0-4.0); LYMPHOCYTES % (AUTO) 10 % (12-44); MEAN CORPUSCULAR HEMOGLOBIN 31 pg (25-34); MEAN CORPUSCULAR HGB CONC 33 g/dL (32-36); MEAN CORPUSCULAR VOLUME 95 fL (80-99); MEAN PLATELET VOLUME 10.7 fL (9.0-12.2); MONOCYTES # (AUTO) 0.9 10^3/uL (0.0-1.0); MONOCYTES % (AUTO) 8 % (0-12); NEUTROPHILS # (AUTO) 8.9 10^3/uL (1.8-7.8); NEUTROPHILS % (AUTO) 79 % (42-75); PLATELET COUNT 160 10^3/uL (130-400); WHITE BLOOD COUNT 11.2 10^3/uL (4.3-11.0)
[2023-05-24 06:32] LABS: ALBUMIN 3.1 GM/DL (3.2-4.5)
[2023-05-24 06:33] LABS: CALCIUM 9.3 MG/DL (8.5-10.1)
[2023-05-24 06:34] LABS: TOTAL PROTEIN 5.6 GM/DL (6.4-8.2)
[2023-05-24 06:36] LABS: BILIRUBIN,TOTAL 1.1 MG/DL (0.1-1.0)
[2023-05-24 06:38] LABS: CREATININE SERUM 1.15 MG/DL (0.60-1.30)
[2023-05-24 07:25] VITALS: BP 122/69
[2023-05-24] MEDS: OFLOXACIN 0.3% OPHTH SOLN 5 ML OP SCH ×2 (08:43→20:03)
[2023-05-24] MEDS: SENNOSIDES 8.6 MG TABLET PO SCH ×2 (08:43→20:07)
[2023-05-24] MEDS: DOCUSATE SODIUM 100 MG CAPSULE PO SCH ×2 (08:43→20:04)
--- NOTE | 2023-05-24 08:48 | Physical Therapy Daily Note ---
PT Daily Note-Current Subjective Pt found seated in recliner upon entry. Agreed to PT. No pain reported pre- treatment and no other complaints. Pain Section J - Health Conditions 1. Rarely or not at all 2. Occasionally 3. Frequently 4. Almost constantly 8. Unable to answer Pain Effect on Sleep: 1 Pain Interference with Therapy: 1 Pain Interference w/Day-to-Day: 1 Mental Status Patient Orientation: Person, Place Attachments: IV Transfers SCALE: Activities may be completed with or without assistive devices. 7-Budxgrrjaa-rxzogny completes the activity by him/herself with no assistance from a helper. 5-Set-up or Clean-up Assistance-helper sets up or cleans up; patient completes activity. [place] assists only prior to or following the activity. 4-Supervision or Touching Assistance-helper provides verbal cues and/or touching/steadying and/or contact guard assistance as patient completes activity. Assistance may be provided throughout the activity or intermittently. 3-Partial/Moderate Assistance-helper does LESS THAN HALF the effort. [place] lifts, holds or supports trunk or limbs, but provides less than half the effort. 2-Substantial/Maximal Assistance-helper does MORE THAN HALF the effort. [place] lifts or holds trunk or limbs and provides more than half the effort. 8-Msrbzowqy-qlsxfk does ALL the effort. Patient does none of the effort to complete the activity. Or, the assistance of 2 or more helpers is required for the patient to complete the activity. If activity was not attempted, code reason: 7-Patient Refused. 9-Not Applicable-not attempted and the patient did not perform the activity before the current illness, exacerbation or injury. 10-Not Attempted due to Environmental Limitations-(lack of equipment, weather restraints, etc.). 88-Not Attempted due to Medical Conditions or Safety Concerns. Sit to Stand (QC): 4 Gait Training Does the Patient Walk?: Yes Distance: 300 Walk 10 feet (QC): 4 Walk 50 ft with 2 Turns(QC): 4 Walk 150 ft (QC): 4 Gait Persons Needed: 1 Gait Assistive Device: FWW Assessment Current Status: Good Progress Pt performs sit to stand transfer /c use of B armrests for push off from chair. SBA required for safety due to strength deficits. Pt ambulates /c use of FWW up to 300 feet before reporting fatigue and returning to room. Pt displays short step lengths /c occasional shuffling as well as forward trunk posture. Demonstrates a slow gait pattern without loss of balance. SBA required during ambulation due to balance deficits. IV pole managed by helper throughout visit. Pt reported slight shortness of breath and fatigue post-ambulation. Pt left in recliner post-treatment /c call light in place and all needs met. Continue to progress pt per POC. PT Exploration Geologist Goals Exploration Geologist Goals PT Exploration Geologist Goals Time Frame: Jun 04, 2023 Roll Left & Right (QC): 6 Sit to Lying (QC): 6 Lying-Sitting on Side/Bed(QC): 6 Sit to Stand (QC): 6 Chair/Lwe-mf-Wmxck Xfer(QC): 6 Toilet Transfer (QC): 6 Walk 10 feet (QC): 5 Walk 50ft with 2 Turns (QC): 5 Walk 150 ft (QC): 5 PT Plan Treatment/Plan Treatment Plan: Continue Plan of Care Treatment Plan: Bed Mobility, Education, Functional Activity Cole, Functional Strength, Gait, Safety, Therapeutic Exercise, Transfers Treatment Duration: Jun 04, 2023 Frequency: 6 times per week Estimated Hrs Per Day: .25 hour per day Patient and/or Family Agrees t: Yes Time Time In: 824 Time Out: 838 DATE: May 24, 2023 Total Billed Treatment Time: 14 Total Billed Treatment 1 visit GT x 1 SUSHIL ONTIVEROS END FINDER [facility] May 24, 2023 08:48
[2023-05-24] MEDS ORDERED: ACETAMINOPHEN 325 MG TABLET PO PRN (11:00)
[2023-05-24 11:11] VITALS: BP 146/76
--- NOTE | 2023-05-24 12:49 | Progress Note ---
LENORA HOYOS 05/24/23 1249: Subjective Date Seen by a Provider: May 24, 2023 Time Seen by a Provider: 10:46 Subjective/Events-last exam 05/24/2023: CC: Rhabdomyolysis HPI: Jadon, 82, notes that he is feeling better. He says that he is glad to be in the hospital and has worries about going home. He is complaining about his increased urination in the night. He say that there was no pain, but the frequency was bothersome. He notes that he wishes to discontinue the IV fluids if possible. He also notes that he is not in any pain. He is ambulating and enjoys walking, but endores some weakness. He says that long distances make him tired and he needs to use the walker. He has no other concerns at the moment. He denies any N/V, dizziness, or chest pain. He notes that his ear is feeling better, draining less, and says that the drops seem to be working. Review of Systems General: No Chills, No Night Sweats; Fatigue; No Malaise, No Appetite, No Other HEENT: No Head Aches, No Visual Changes, No Eye Pain; Ear Pain (mild, notes annoyance about drainage ); No Dysphasia, No Sinus Congestion, No Post Nasal Drip, No Sore Throat, No Other Pulmonary: No Dyspnea, No Cough, No Pleuritic Chest Pain, No Other Cardiovascular: No: Chest Pain, Palpitations, Orthopnea, Paroxysmal Noc. Dyspnea, Edema, Lt Headedness, Other Gastrointestinal: No: Nausea, Vomiting, Abdominal Pain, Diarrhea, Constipation, Melena, Hematochezia, Other Genitourinary: No Dysuria; Frequency (many night time wakings); No Incontinence, No Hematuria, No Retention, No Other Musculoskeletal: No: other, neck pain, shoulder pain, arm pain, back pain, hand pain, leg pain, foot pain Neurological: No: Weakness, Numbness, Incoordination, Change in speech, Confusion, Seizures, Other Objective Exam Last Set of Vital Signs Vital Signs Date Time Temp Pulse Resp B/P (MAP) Pulse Ox O2 Delivery O2 Flow Rate FiO2 05/24/23 11:11 36.8 88 16 146/76 (99) 98 Room Air Capillary Refill : I&O Intake and Output 05/24/23 00:00 Intake Total 2300 ml Output Total 1300 ml Balance 1000 ml Intake Oral 1300 ml IV Total 1000 ml Output Urine Total 1300 ml # Voids 4 General: Alert, Oriented X3, Cooperative, No Acute Distress HEENT: PERRLA, EOMI Neck: Supple, No JVD Lungs: Clear to Auscultation, Normal Air Movement Heart: Regular Rate, Other (aortic stenosis noted ) Abdomen: Normal Bowel Sounds, Soft Extremities: No Clubbing, No Cyanosis, No Edema, Normal Pulses Skin: No Rashes, No Significant Lesion Neuro: Normal Gait, Normal Speech, Strength at 5/5 X4 Ext, Normal Tone Results Lab Laboratory Tests 05/24/23 05:37: White Blood Count 11.2H, Red Blood Count 3.40L, Hemoglobin 10.5L, Hematocrit 32L , Mean Corpuscular Volume 95, Mean Corpuscular Hemoglobin 31, Mean Corpuscular Hemoglobin Concent 33, Red Cell Distribution Width 13.2, Platelet Count 160, Mean Platelet Volume 10.7, Immature Granulocyte % (Auto) 0, Neutrophils (%) (Auto) 79H, Lymphocytes (%) (Auto) 10L, Monocytes (%) (Auto) 8, Eosinophils (%) (Auto) 3, Basophils (%) (Auto) 0, Neutrophils # (Auto) 8.9H, Lymphocytes # (Auto) 1.1, Monocytes # (Auto) 0.9, Eosinophils # (Auto) 0.3, Basophils # (Auto) 0.1, Immature Granulocyte # (Auto) 0.0, Sodium Level 135, Potassium Level 4.0, Chloride Level 108H, Carbon Dioxide Level 20L, Anion Gap 7, Blood Urea Nitrogen 21H, Creatinine 1.15, Estimat Glomerular Filtration Rate 63, BUN/Creatinine Ratio 18, Glucose Level 161H, Calcium Level 9.3, Corrected Calcium 10.0, Total Bilirubin 1.1H, Aspartate Amino Transf (AST/SGOT) 96H, Alanine Aminotransferase (ALT/SGPT) 60H, Alkaline Phosphatase 52, Total Creatine Kinase 491H, Total Protein 5.6L, Albumin 3.1L Assessment/Plan Assessment/Plan Assess & Plan/Chief Complaint 05/24/2023: A/P: -Rhabdomyolysis * Monitor CK * PO fluids, ambulation -THIAGO * D/C IVF due to urinary frequency, encourage PO water intake * Monitor BUN and Cr -Otitis Externa * Ocuflox 2 drops x 7 days -Aortic Stenosis * monitor for changes -Elevated LFT * hold statin until normalized -Resume home meds * holding statin, enalapril, metformin -Lumbar Pain * Oxycodone -D/C telemetry -Plan to return home 05/25 * PT, ambulation, manager social responsibility for home monitoring options KRISTY PATEL DO 05/24/23 2030: Subjective Subjective/Events-last exam Much improved Denies any new issues IV fluids will be hep-locked Discontinue telemetry Ready for discharge Medical alert will be initiated Assessment/Plan Assessment/Plan Assess & Plan/Chief Complaint Discharge home tomorrow Medical alert Supervisory-Addendum Brief Verification & Attestation Participated in pt care: history, MDM, physical Personally performed: exam, history, MDM, supervision of care Care discussed with: Medical Student Procedures: n/a Results interpretation: Verified all documentation Verification and Attestation of Medical Student E/M Service A medical student performed and documented this service in my presence. I r eviewed and verified all information documented by the medical student and made modifications to such information, when appropriate. I personally performed the physical exam and medical decision making. Kristy Patel, May 24, 2023,20:29 LENORA HOYOS May 24, 2023 12:49 KRISTY PATEL DO May 24, 2023 20:30
[2023-05-24 15:31] VITALS: BP 128/64
[2023-05-24] MEDS: ASPIRIN enteric coated 81MG TABLET PO SCH (17:46)
[2023-05-24] MEDS: CITALOPRAM 20 MG TABLET PO SCH (17:46)
[2023-05-24] MEDS: ALLOPURINOL 300 MG TABLET PO SCH (17:46)
[2023-05-24 19:31] VITALS: BP 144/67
[2023-05-24] MEDS: FINASTERIDE 5 MG TABLET PO SCH (20:04)
[2023-05-24] MEDS: MELATONIN 3 MG TABLET PO PRN (20:04)
[2023-05-24] MEDS: oxyCODONE IMMEDIATE RELEASE 5 MG TABLET PO PRN (20:05)
[2023-05-24 23:13] VITALS: BP 164/79
[2023-05-25] VITALS (8 sets, daily range): BP systolic 123–158; BP diastolic 68–86
[2023-05-25 06:07] LABS: BASOPHILS % (AUTO) 0 % (0-10); EOSINOPHILS # (AUTO) 0.2 10^3/uL (0.0-0.3); EOSINOPHILS % (AUTO) 2 % (0-10); HEMATOCRIT 29 % (40-54); HEMOGLOBIN 9.6 g/dL (13.3-17.7); LYMPHOCYTES # (AUTO) 1.2 10^3/uL (1.0-4.0); LYMPHOCYTES % (AUTO) 11 % (12-44); MEAN CORPUSCULAR HEMOGLOBIN 31 pg (25-34); MEAN CORPUSCULAR HGB CONC 33 g/dL (32-36); MEAN CORPUSCULAR VOLUME 94 fL (80-99); MEAN PLATELET VOLUME 10.7 fL (9.0-12.2); MONOCYTES % (AUTO) 9 % (0-12); NEUTROPHILS # (AUTO) 8.9 10^3/uL (1.8-7.8); NEUTROPHILS % (AUTO) 78 % (42-75); PLATELET COUNT 152 10^3/uL (130-400); WHITE BLOOD COUNT 11.3 10^3/uL (4.3-11.0)
[2023-05-25 06:21] LABS: ALBUMIN 3.1 GM/DL (3.2-4.5); POTASSIUM 3.5 MMOL/L (3.6-5.0)
[2023-05-25 06:22] LABS: CALCIUM 9.3 MG/DL (8.5-10.1)
[2023-05-25 06:24] LABS: TOTAL PROTEIN 5.7 GM/DL (6.4-8.2)
[2023-05-25 06:25] LABS: BILIRUBIN,TOTAL 1.3 MG/DL (0.1-1.0)
[2023-05-25 06:27] LABS: CREATININE SERUM 1.04 MG/DL (0.60-1.30)
[2023-05-25] MEDS: OFLOXACIN 0.3% OPHTH SOLN 5 ML OP SCH ×2 (08:06→20:55)
[2023-05-25] MEDS: VITAMIN D3 125 MCG (5,000 UNITS) TABLET PO SCH (08:07)
[2023-05-25] MEDS: SENNOSIDES 8.6 MG TABLET PO SCH ×2 (08:07→20:55)
[2023-05-25] MEDS: DOCUSATE SODIUM 100 MG CAPSULE PO SCH ×2 (08:07→20:55)
[2023-05-25] MEDS ORDERED: POTASSIUM CHLORIDE 10 MEQ TABLET PO NR (10:00)
--- NOTE | 2023-05-25 10:30 | Physical Therapy Daily Note ---
PT Daily Note-Current Subjective Patient sitting in chair upon PT arrival, agreeable to treatment. Patient rates pain at 5/10 currently in low back. Pain Section J - Health Conditions 1. Rarely or not at all 2. Occasionally 3. Frequently 4. Almost constantly 8. Unable to answer Pain Effect on Sleep: 1 Pain Interference with Therapy: 1 Pain Interference w/Day-to-Day: 1 Mental Status Patient Orientation: Person, Place, Time, Situation Transfers SCALE: Activities may be completed with or without assistive devices. 9-Lcnabqgegn-twkefoc completes the activity by him/herself with no assistance from a helper. 5-Set-up or Clean-up Assistance-helper sets up or cleans up; patient completes activity. [place] assists only prior to or following the activity. 4-Supervision or Touching Assistance-helper provides verbal cues and/or to uching/steadying and/or contact guard assistance as patient completes activity. Assistance may be provided throughout the activity or intermittently. 3-Partial/Moderate Assistance-helper does LESS THAN HALF the effort. [place] lifts, holds or supports trunk or limbs, but provides less than half the effort. 2-Substantial/Maximal Assistance-helper does MORE THAN HALF the effort. [place] lifts or holds trunk or limbs and provides more than half the effort. 0-Canjbbllv-osyzkl does ALL the effort. Patient does none of the effort to complete the activity. Or, the assistance of 2 or more helpers is required for the patient to complete the activity. If activity was not attempted, code reason: 7-Patient Refused. 9-Not Applicable-not attempted and the patient did not perform the activity before the current illness, exacerbation or injury. 10-Not Attempted due to Environmental Limitations-(lack of equipment, weather restraints, etc.). 88-Not Attempted due to Medical Conditions or Safety Concerns. Sit to Stand (QC): 4 Chair/Zbo-ev-Uuhhc Xfer(QC): 4 Gait Training Does the Patient Walk?: Yes Distance: 300' Walk 10 feet (QC): 4 Walk 50 ft with 2 Turns(QC): 4 Walk 150 ft (QC): 4 Gait Assistive Device: FWW Assessment Current Status: Fair Progress Patient tolerated treatment well. Performs all bed mobility and transfers with SBA. Patient ambulates 300 feet with FWW, with SBA and verbal cues for safety, progression, posture and stride length. Patient in chair post treatment with all needs met, nursing notified, call light in hand. PT Mast Maker Goals Intermediate Goals PT Mast Maker Goals Time Frame: Jun 04, 2023 Roll Left & Right (QC): 6 Sit to Lying (QC): 6 Lying-Sitting on Side/Bed(QC): 6 Sit to Stand (QC): 6 Chair/Rlm-lr-[place] Xfer(QC): 6 Toilet Transfer (QC): 6 Walk 10 feet (QC): 5 Walk 50ft with 2 Turns (QC): 5 Walk 150 ft (QC): 5 PT Plan Treatment/Plan Treatment Plan: Continue Plan of Care Treatment Plan: Bed Mobility, Education, Functional Activity Cole, Functional Strength, Gait, Safety, Therapeutic Exercise, Transfers Treatment Duration: Jun 04, 2023 Frequency: 6 times per week Estimated Hrs Per Day: .25 hour per day Patient and/or Family Agrees t: Yes Safety Risks/Education Patient Education: Gait Training, Transfer Techniques Teaching Recipient: Patient Teaching Methods: Demonstration, Discussion Response to Teaching: Verbalize Understanding, Return Demonstration Time Time In: 850 Time Out: 900 DATE: May 25, 2023 Total Billed Treatment Time: 10 Total Billed Treatment Visit, GT ALYSA RIOJAS PT May 25, 2023 10:30
--- NOTE | 2023-05-25 11:04 | Occupational Ther Daily Note ---
OT Current Status-Daily Note Subjective Reports going home today Pain Location: No Pain Reported Mental Status/Objective Patient Orientation: Person, Place, Time, Situation ADL-Treatment Patient fully dresses in his own clothing to [place] from hospital, SBA w/ FWW and s for safety Therapy Code Descriptions/Definitions Functional [place] Measure: 0=Not Assessed/NA 4=Minimal Assistance 1=Total Assistance 5=Supervision or Setup 2=Maximal Assistance 6=Modified [place] 3=Moderate Assistance 7=Complete IndependenceSCALE: Activities may be completed with or without assistive devices. 2-Guhbrbjqmu-cyzzgjg completes the activity by him/herself with no assistance from a helper. 5-Set-up or Clean-up Assistance-helper sets up or cleans up; patient completes activity. [place] assists only prior to or following the activity. 4-Supervision or Touching Assistance-helper provides verbal cues and/or touchin g/steadying and/or contact guard assistance as patient completes activity. Assistance may be provided throughout the activity or intermittently. 3-Partial/Moderate Assistance-helper does LESS THAN HALF the effort. [place] lifts, holds or supports trunk or limbs, but provides less than half the effort. 2-Substantial/Maximal Assistance-helper does MORE THAN HALF the effort. [place] lifts or holds trunk or limbs and provides more than half the effort. 2-Gmtjcvnpa-xawwli does ALL the effort. Patient does none of the effort to complete the activity. Or, the assistance of 2 or more helpers is required for the patient to complete the activity. If activity was not attempted, code reason: 7-Patient Refused. 9-Not Applicable-not attempted and the patient did not perform the activity before the current illness, exacerbation or injury. 10-Not Attempted due to Environmental Limitations-(lack of equipment, weather restraints, etc.). 88-Not Attempted due to Medical Conditions or Safety Concerns. Eating (QC): 6 Oral Hygiene (QC): 5 Upper Body Dressing (QC): 5 Lower Body Dressing (QC): 5 (LLE first d/t taxing efforts) On/Off Footwear: 5 Toileting Hygiene (QC): 5 Toilet Transfer (QC): 5 Education OT Patient Education: Correct positioning, Modified ADL techniques, Progress toward Goal/Update tx plan, Purpose of tx/functional activities, Reviewed precautions, Rehab process, Safety issues, Transfer techniques, Use of adapted equipment Teaching Recipient: Patient Teaching Methods: Demonstration Response to Teaching: Return Demonstration OT Tongue And Quarter Stitcher Goals Tongue And Quarter Stitcher Goals Eating (QC): 6 Oral Hygiene (QC): 6 Toileting Hygiene (QC): 6 Shower/Bathe Self (QC): 6 Upper Body Dressing (QC): 6 Lower Body Dressing (QC): 6 On/Off Footwear (QC): 6 1=Demonstrate adherence to instructed precautions during ADL tasks. 2=Patient will verbalize/demonstrate understanding of assistive devices/modifications for ADL. 3=Patient will improve strength/tolerance for activity to enable patient to perform ADL's. OT Education/Plan Problem List/Assessment Assessment: Impaired Self-Care Skills Discharge Recommendations Plan/Recommendations: Discharge/Goals Met Treatment Plan/Plan of Care Patient would benefit from OT for education, treatment and training to promote independence in ADL's, mobility, safety and/or upper extremity function for ADL's. Plan of Care: ADL Retraining, Cognitive Retraining, Concurrent Therapy, Functional Mobility, Group Exercise/Act as Ind, UE Funct Exercise/Act Treatment Duration: May 27, 2023 Frequency: 3 times per week (3-5 times per week) Estimated Hrs Per Day: .25 hour per day Rehab Potential: Fair Time Start Time: 09:00 Stop Time: 09:15 DATE: May 25, 2023 Total Time Billed (hr/min): 15 Billed Treatment Time ADL 15 min KEVIN GREENBERG OT May 25, 2023 11:04
[2023-05-25] MEDS ORDERED: LACTULOSE SYRUP 10GM/15ML 30ML UDC PO ONE (11:30)
[2023-05-25] MEDS ORDERED: BISACODYL 10 MG SUPPOSITORY PR ONE (11:30)
[2023-05-25] MEDS ORDERED: SENNOSIDES 8.6 MG TABLET PO ONE (11:30)
[2023-05-25] MEDS ORDERED: BISACODYL 10 MG SUPPOSITORY PR PRN (11:30)
--- NOTE | 2023-05-25 13:26 | Progress Note ---
LENORA HOYOS 05/25/23 1326: Subjective Date Seen by a Provider: May 25, 2023 Time Seen by a Provider: 11:00 Subjective/Events-last exam 05/25/2023: CC: Rhabdomyolysis HPI: Jadon, 82M, notes that last night was more difficult. He endorses that he has had increased urination throughout the night. He also noted that he had some incontinence. He denies any pain associated with urination or any other changes. He also notes that this occurs mostly at night. Jadon estimated 10 night time awakenings due to urinary frequency. He notes that he has no pain in his muscles or any other previous symptoms from his fall. He endorses some difficulty walking and some potential weakness, but overall says that he is back at his baseline. He also notes that he has some anxiety about returning home alone. He has set up having a monitor for if he falls again and has began to coordinate outside care. He says that his ear continues to improve. No other concerns. Review of Systems General: No Chills, No Night Sweats; Fatigue; No Malaise, No Appetite, No Other HEENT: No Head Aches, No Visual Changes, No Eye Pain; Ear Pain (less than previously ); No Dysphasia, No Sinus Congestion, No Post Nasal Drip, No Sore Throat, No Other Pulmonary: No Dyspnea, No Cough, No Pleuritic Chest Pain, No Other Cardiovascular: No: Chest Pain, Palpitations, Orthopnea, Paroxysmal Noc. Dyspnea, Edema, Lt Headedness, Other Gastrointestinal: No: Nausea, Vomiting, Abdominal Pain, Diarrhea, Constipation, Melena, Hematochezia, Other Genitourinary: No Dysuria; Frequency, Incontinence; No Hematuria, No Retention, No Other Musculoskeletal: No: other, neck pain, shoulder pain, arm pain, back pain, hand pain, leg pain, foot pain Neurological: Weakness; No: Numbness, Incoordination, Change in speech, Conf usion, Seizures, Other Objective Exam Last Set of Vital Signs Vital Signs Date Time Temp Pulse Resp B/P (MAP) Pulse Ox O2 Delivery O2 Flow Rate FiO2 05/25/23 12:22 36.4 83 19 147/86 (106) 98 Room Air Capillary Refill : I&O Intake and Output 05/25/23 00:00 Intake Total 3951 ml Balance 3951 ml Intake Oral 1951 ml IV Total 2000 ml # Voids 16 General: Alert, Oriented X3, Cooperative, No Acute Distress HEENT: Atraumatic, PERRLA, EOMI, Other (L- ear drainage ) Neck: Supple, No JVD Lungs: Clear to Auscultation, Normal Air Movement Heart: Regular Rate, Other (aortic stenosis, present prior to admission, no change ) Abdomen: Normal Bowel Sounds, Soft Extremities: No Clubbing, Normal Pulses, Other (1+ edema in LE bilaterally ) Skin: No Rashes, No Breakdown Neuro: Normal Gait, Normal Speech, Strength at 5/5 X4 Ext, Normal Tone, Sensation Intact, Cranial Nerves 3-12 NL Results Lab Laboratory Tests 05/25/23 05:15: White Blood Count 11.3H, Red Blood Count 3.10L, Hemoglobin 9.6L, Hematocrit 29L, Mean Corpuscular Volume 94, Mean Corpuscular Hemoglobin 31, Mean Corpuscular Hemoglobin Concent 33, Red Cell Distribution Width 13.3, Platelet Count 152, Mean Platelet Volume 10.7, Immature Granulocyte % (Auto) 0, Neutrophils (%) (Auto) 78H, Lymphocytes (%) (Auto) 11L, Monocytes (%) (Auto) 9, Eosinophils (%) (Auto) 2, Basophils (%) (Auto) 0, Neutrophils # (Auto) 8.9H, Lymphocytes # (Auto) 1.2, Monocytes # (Auto) 1.0, Eosinophils # (Auto) 0.2, Basophils # (Auto) 0.0, Immature Granulocyte # (Auto) 0.0, Sodium Level 136, Potassium Level 3.5L, Chloride Level 108H, Carbon Dioxide Level 20L, Anion Gap 8, Blood Urea Nitrogen 19H, Creatinine 1.04, Estimat Glomerular Filtration Rate 71, BUN/Creatinine Ratio 18, Glucose Level 152H, Calcium Level 9.3, Corrected Calcium 10.0, Total Bilirubin 1.3H, Aspartate Amino Transf (AST/SGOT) 64H, Alanine Aminotransferase (ALT/SGPT) 57H, Alkaline Phosphatase 52, Total Creatine Kinase 301H, Total Protein 5.7L, Albumin 3.1L Assessment/Plan Assessment/Plan Assess & Plan/Chief Complaint 05/25/2023: A/P: -Rhabdomyolysis * Monitor CK, trending down to 301 from 491 * PO fluids, ambulation -Increased Urinary Frequency * UA -THIAGO * Monitor BUN and Cr -Otitis Externa * Ocuflox 2 drops x 7 days -Aortic Stenosis * monitor for changes -Elevated LFT * hold statin until normalized -Resume home meds * holding statin, enalapril, metformin -Lumbar Pain * Oxycodone -Plan to return home 05/26 * PT, ambulation, social science manager for home monitoring options * awaiting UA to rule out UTI cause of frequency KRISTY PATEL DO 05/25/233: Assessment/Plan Assessment/Plan Assess & Plan/Chief Complaint Constipation treatment Check urine sample due to polyuria Supervisory-Addendum Brief Verification & Attestation Participated in pt care: history, MDM, physical Personally performed: exam, history, MDM, supervision of care Care discussed with: Medical Student Procedures: n/a Results interpretation: Verified all documentation Verification and Attestation of Medical Student E/M Service A medical student performed and documented this service in my presence. I reviewed and verified all information documented by the medical student and made modifications to such information, when appropriate. I personally performed the physical exam and medical decision making. Krsity Patel, May 25, 2023,21:12 LENORA HOYOS May 25, 2023 13:26 KRISTY PATEL DO May 25, 2023 21:13
[2023-05-25] MEDS ORDERED: VENlafaxine XR 75 MG (EFFEXOR XR) CAP PO SCH (17:00)
[2023-05-25 17:30] LABS: BACTERIA,URINE LARGE /HPF; BILIRUBIN,URINE NEGATIVE (NEGATIVE); CLARITY,URINE CLOUDY; COLOR,URINE YELLOW; GLUCOSE, URINE (UA) NEGATIVE (NEGATIVE); KETONES,URINE TRACE (NEGATIVE); LEUKOCYTE ESTERASE ,URINE 1+ (NEGATIVE); NITRITE,URINE POSITIVE (NEGATIVE); PH,URINE 5.5 (5-9); PROTEIN,URINE 2+ (NEGATIVE); WBC,URINE TNTC /HPF
[2023-05-25] MEDS: ASPIRIN enteric coated 81MG TABLET PO SCH (17:34)
[2023-05-25] MEDS: ALLOPURINOL 300 MG TABLET PO SCH (17:35)
[2023-05-25] MEDS: CITALOPRAM 20 MG TABLET PO SCH (17:35)
[2023-05-25] MEDS: FINASTERIDE 5 MG TABLET PO SCH (20:55)
[2023-05-25] MEDS: LACTULOSE SYRUP 10GM/15ML 30ML UDC PO SCH (20:55)
[2023-05-25] MEDS: oxyCODONE IMMEDIATE RELEASE 5 MG TABLET PO PRN (20:58)
[2023-05-25] MEDS ORDERED: CEFDINIR 300 MG CAPSULE PO ONE (21:15)
[2023-05-26 03:12] VITALS: BP 109/62
[2023-05-26 05:53] LABS: BASOPHILS % (AUTO) 0 % (0-10); EOSINOPHILS # (AUTO) 0.5 10^3/uL (0.0-0.3); EOSINOPHILS % (AUTO) 4 % (0-10); HEMATOCRIT 30 % (40-54); HEMOGLOBIN 9.9 g/dL (13.3-17.7); LYMPHOCYTES # (AUTO) 1.3 10^3/uL (1.0-4.0); LYMPHOCYTES % (AUTO) 12 % (12-44); MEAN CORPUSCULAR HEMOGLOBIN 31 pg (25-34); MEAN CORPUSCULAR HGB CONC 33 g/dL (32-36); MEAN CORPUSCULAR VOLUME 94 fL (80-99); MEAN PLATELET VOLUME 10.7 fL (9.0-12.2); MONOCYTES % (AUTO) 9 % (0-12); NEUTROPHILS % (AUTO) 73 % (42-75); PLATELET COUNT 164 10^3/uL (130-400); WHITE BLOOD COUNT 10.8 10^3/uL (4.3-11.0)
[2023-05-26 06:08] LABS: ALBUMIN 3.1 GM/DL (3.2-4.5); POTASSIUM 3.8 MMOL/L (3.6-5.0)
[2023-05-26 06:09] LABS: CALCIUM 9.3 MG/DL (8.5-10.1)
[2023-05-26 06:10] LABS: TOTAL PROTEIN 5.7 GM/DL (6.4-8.2)
[2023-05-26 06:14] LABS: CREATININE SERUM 1.09 MG/DL (0.60-1.30)
[2023-05-26 07:17] VITALS: BP 149/73
[2023-05-26] MEDS: LACTULOSE SYRUP 10GM/15ML 30ML UDC PO SCH (07:57)
[2023-05-26] MEDS: OFLOXACIN 0.3% OPHTH SOLN 5 ML OP SCH (07:57)
[2023-05-26] MEDS: VITAMIN D3 125 MCG (5,000 UNITS) TABLET PO SCH (07:58)
[2023-05-26] MEDS: DOCUSATE SODIUM 100 MG CAPSULE PO SCH (07:58)
[2023-05-26] MEDS: SENNOSIDES 8.6 MG TABLET PO SCH (07:58)
[2023-05-26] MEDS ORDERED: CEFDINIR 300 MG CAPSULE PO SCH (09:00)
[2023-05-26] MEDS ORDERED: SENNOSIDES 8.6 MG TABLET PO SCH (09:00)
--- NOTE | 2023-05-26 09:48 | Physical Therapy Daily Note ---
PT Daily Note-Current Subjective Pt found seated in recliner upon entry. Agreed to PT. No report of pain pre- treatment. States that he might get to go home this PM. Pain Section J - Health Conditions 1. Rarely or not at all 2. Occasionally 3. Frequently 4. Almost constantly 8. Unable to answer Pain Effect on Sleep: 1 Pain Interference with Therapy: 1 Pain Interference w/Day-to-Day: 1 Mental Status Patient Orientation: Person, Place Transfers SCALE: Activities may be completed with or without assistive devices. 1-Imrsyaszxy-mgtshlc completes the activity by him/herself with no assistance from a helper. 5-Set-up or Clean-up Assistance-helper sets up or cleans up; patient completes activity. [place] assists only prior to or following the activity. 4-Supervision or Touching Assistance-helper provides verbal cues and/or delphine emi/steadying and/or contact guard assistance as patient completes activity. Assistance may be provided throughout the activity or intermittently. 3-Partial/Moderate Assistance-helper does LESS THAN HALF the effort. [place] lifts, holds or supports trunk or limbs, but provides less than half the effort. 2-Substantial/Maximal Assistance-helper does MORE THAN HALF the effort. [place] lifts or holds trunk or limbs and provides more than half the effort. 7-Emuzdprsc-avisuz does ALL the effort. Patient does none of the effort to complete the activity. Or, the assistance of 2 or more helpers is required for the patient to complete the activity. If activity was not attempted, code reason: 7-Patient Refused. 9-Not Applicable-not attempted and the patient did not perform the activity before the current illness, exacerbation or injury. 10-Not Attempted due to Environmental Limitations-(lack of equipment, weather restraints, etc.). 88-Not Attempted due to Medical Conditions or Safety Concerns. Sit to Stand (QC): 6 Gait Training Does the Patient Walk?: Yes Distance: 300 Walk 10 feet (QC): 4 Walk 50 ft with 2 Turns(QC): 4 Walk 150 ft (QC): 4 Gait Persons Needed: 1 Gait Assistive Device: FWW Assessment Current Status: Good Progress Pt performs sit to stand transfer from recliner independently /c use of B armrests for push off. Pt ambulated 300 feet /c use of FWW. Required SBA for safety due to balance deficits. Pt displays good balance during ambulation but required verbal cues for increased step length, increased hip flexion, and correct neck and trunk posture. Increased fatigue reported post-ambulation. Pt left in recliner post-treatment /c call light in place and all needs met. Continue to progress pt per POC. PT Half-Way Goals Emt Basic Goals PT Emt Basic Goals Time Frame: Jun 04, 2023 Roll Left & Right (QC): 6 Sit to Lying (QC): 6 Lying-Sitting on Side/Bed(QC): 6 Sit to Stand (QC): 6 Chair/Gpv-rh-Nwqlg Xfer(QC): 6 Toilet Transfer (QC): 6 Walk 10 feet (QC): 5 Walk 50ft with 2 Turns (QC): 5 Walk 150 ft (QC): 5 PT Plan Treatment/Plan Treatment Plan: Continue Plan of Care Treatment Plan: Bed Mobility, Education, Functional Activity Cole, Functional Strength, Gait, Safety, Therapeutic Exercise, Transfers Treatment Duration: Jun 04, 2023 Frequency: 6 times per week Estimated Hrs Per Day: .25 hour per day Patient and/or Family Agrees t: Yes Time Time In: 930 Time Out: 941 DATE: May 26, 2023 Total Billed Treatment Time: 11 Total Billed Treatment 1 visit GT x 1 MAJOR,SUSHIL SOIL CONSERVATIONIST May 26, 2023 09:48
--- NOTE | 2023-05-26 10:33 | Progress Note ---
LENORA HOYOS 05/26/23 1033: Progress Note 05/26/2023: CC: Rhabdomyolysis Course: Jadon is an 82 year old male that presented to the [facility] on 05/21 after having a fall. Jadon fell on 05/20 in his backyard and remained there for 22 hours before being found. In the [facility] ER, Jadon had elevated CK that was consistent with rhabdomyolysis. This is related to his fall and remaining outside on the ground for an extended period of time. Due to his increased care needs, Jadon was transferred to the [facility] 4th floor MED/SURG unit. Jadon has stayed in the unit since. Jadon noted that he did not hit his head and presented with no other acute processes. Due to the fall and subsequent rhabdomyolysis, Jadon received extensive IV fluids. He was on IV fluids until 05/23, where he continued to have supportive PO fluids. His CK was at 3911 on 05/21 and on 05/26 this was reduced to 159. This lab is still elevated, but is trending down showing proper treatment of his condition. Additionally while in the hospital it was found that Jadon had external otitis, which was happening prior to the fall. Treatment was started with Ocuflox and has shown improvement. On 05/25, Jadon noted that he was having increased urinary frequency, which lead to obtaining a UA. The UA found bacteria with likely E.Coli on culture. Jadon was started on Cefdinir which can be orally taken at discharge. Jadon also has had some elevated LFT, but this has continued to improve and was likely related to his fall. To prevent future falls, social work was consulted to establish potential home health and fall monitoring. The fall monitoring system has been requested and should be in place to prevent future issues. Jadon also expressed some concerns about his ability to walk which has prompted some PT. PT has walked with Jadon each day multiple times and Jadon notes increased confidence in his abilities. At time of discharge, Jadon has a good prognosis. His rhabdomyolysis is expected to make a complete recovery. The biggest issue to address is ensuring no future falls where he is alone for extended periods of time. With the social professionals interventions, the monitor and potential home health, this risk should be mitigated. Additionally, it appears as though the external otitis and the UTI should clear with their current outpatient treatment. Jadon should continue to take Ocuflox (3 drops in left ear daily until 05/28) and the Omnicef (300mg pill BID until 06/04). Jadon is to follow up with Dr. Aj on 05/31 to ensure proper care trend. No other concerns. KRISTY AJ DO 05/26/232112: Supervisory-Addendum Brief Verification & Attestation Participated in pt care: history, MDM, physical Personally performed: exam, history, MDM, supervision of care Care discussed with: Medical Student Procedures: n/a Results interpretation: Verified all documentation Verification and Attestation of Medical Student E/M Service A medical student performed and documented this service in my presence. I reviewed and verified all information documented by the medical student and made modifications to such information, when appropriate. I personally performed the physical exam and medical decision making. Kristy Aj, May 26, 2023,21:13 LENORA HOYOS May 26, 2023 10:33 KRISTY AJ DO May 26, 2023 21:13
[2023-05-26 11:45] VITALS: BP 148/79
[2023-05-26] MEDS ORDERED: CEFD300C3 PO (12:19)
[2023-05-26] MEDS ORDERED: OFL.3OP5 OP (12:19)
--- NOTE | 2023-05-26 12:20 | D/C HH Face to Face Order ---
D/C HH Face to Face Orders Reconcile Patient Problems Problems Reviewed?: Yes Instructions for Patient HH Patient Instructions/FollowUp: PCP 1 week Physician to follow Patient: Jean Marie Discharge Diet for Home: No Restrictions Patient Problems: Falls Patient Data-Allergies,Ht & Wt Patient Allergies: Coded Allergies: No Allergy Information Available (Unverified , 07/16/20) Home Health Need/Face to Face Date of Face to Face: May 26, 2023 Clinical Findings: Generalized weakness and fatigue, Instability, Muscle weakness, Unsteady gait I have seen Pt [id number]: Yes Discharged To: Home Diagnosis/Conditions: Falls Patient is Homebound due to: [place] fall risk due to instabilty, Muscle weakness Homebound Status Due to the above stated illness, injury or surgical procedure (medical condition or diagnosis) and associated clinical findings, the patient is homebound because of his/her inability to leave home except with aid of a supportive device and/or person AND leaving the home requires a considerable and taxing effort or is medically contraindicated. Pt req the following assistanc: Walker Home Health Nursing Orders Home Health Services Order: Nursing Services, Blasting Entry Specialist-Evaluate & Treat, Physical Therapy-Evaluate & Treat Certify Stmt I certify that this patient is under my care and that I, a nurse practitioner or a physician; a medical billing assistant working with me, had a face to face encounter that - meets the physician face to face encounter requirements with this patient as dated. REEMA PATEL DO May 26, 2023 12:20
--- NOTE | 2023-05-26 12:20 | Discharge Summary ---
Diagnosis/Chief Complaint Date of Admission May 21, 2023 at 23:14 Date of Discharge Discharge Date: May 26, 2023 Discharge Diagnosis A/P: -Rhabdomyolysis * Monitor CK, trending down to 301 from 491 * PO fluids, ambulation -Increased Urinary Frequency * UA -THIAGO * Monitor BUN and Cr -Otitis Externa * Ocuflox 2 drops x 7 days -Aortic Stenosis * monitor for changes -Elevated LFT * hold statin until normalized -Resume home meds * holding statin, enalapril, metformin -Lumbar Pain * Oxycodone UTI Discharge Summary Discharge Physical Examination Allergies: Coded Allergies: No Allergy Information Available (Unverified , 07/16/20) Vitals & I&Os Vital Signs Date Time Temp Pulse Resp B/P (MAP) Pulse Ox O2 Delivery O2 Flow Rate FiO2 05/26/23 15:08 05/26/23 11:45 36.7 81 16 Room Air 05/26/23 07:17 99 General Appearance: Alert, Oriented X3, Cooperative Respiratory: Clear to Auscultation Hospital Course Was the Problem List Reviewed?: Yes CC: Rhabdomyolysis Course: Jadon is an 82 year old male that presented to the [facility] [place] [facility] on 05/21 after having a fall. Jadon fell on 05/20 in his backyard and remained there for 22 hours before being found. In the [facility] [place] [facility], Jadon had elevated CK that was consistent with rhabdomyolysis. This is related to his fall and remaining outside on the ground for an extended period of time. Due to his increased care needs, Jadon was transferred to the [facility] 4th floor MED/SURG unit. Jadon has stayed in the unit since. Jadon noted that he did not hit his head and presented with no other acute processes. Due to the fall and subsequent rhabdomyolysis, Jadon received extensive IV fluids. He was on IV fluids until 05/23, where he continued to have supportive PO fluids. His CK was at 3911 on 05/21 and on 05/26 this was reduced to 159. This lab is still elevated, but is trending down showing proper treatment of his condition. Additionally while in the hospital it was found that Jadon had external otitis, which was happening prior to the fall. Treatment was started with Ocuflox and has shown improvement. On 05/25, Jadon noted that he was having increased urinary frequency, which lead to obtaining a UA. The UA found bacteria with likely E.Coli on culture. Jadon was started on Cefdinir which can be orally taken at discharge. Jadon also has had some elevated LFT, but this has continued to improve and was likely related to his fall. To prevent future falls, social work was consulted to establish potential home health and fall monitoring. The fall monitoring system has been requested and should be in place to prevent future issues. Jadon also expressed some concerns about his ability to walk which has prompted some PT. PT has walked with Jadon each day multiple times and Jadon notes increased confidence in his abilities. At time of discharge, Jadon has a good prognosis. His rhabdomyolysis is expected to make a complete recovery. The biggest issue to address is ensuring no future falls where he is alone for extended periods of time. With the bilingual social worker interventions, the monitor and potential home health, this risk should be mitigated. Additionally, it appears as though the external otitis and the UTI should clear with their current outpatient treatment. Jadon should continue to take Ocuflox (3 drops in left ear daily until 05/28) and the Omnicef (300mg pill BID until 06/04). Jadon is to follow up with Dr. Aj on 05/31 to ensure proper care trend. No other concerns. Labs (last 24 hrs) Laboratory Tests 05/22/23 05:40: White Blood Count 14.3H, Red Blood Count 3.27L, Hemoglobin 10.2L, Hematocrit 31L , Mean Corpuscular Volume 93, Mean Corpuscular Hemoglobin 31, Mean Corpuscular Hemoglobin Concent 33, Red Cell Distribution Width 13.3, Platelet Count 185, Mean Platelet Volume 10.9, Immature Granulocyte % (Auto) 0, Neutrophils (%) (Auto) 84H, Lymphocytes (%) (Auto) 8L, Monocytes (%) (Auto) 7, Eosinophils (%) (Auto) 0, Basophils (%) (Auto) 0, Neutrophils # (Auto) 12.1H, Lymphocytes # (Auto) 1.1, Monocytes # (Auto) 1.0, Eosinophils # (Auto) 0.0, Basophils # (Auto) 0.0, Immature Granulocyte # (Auto) 0.0, Neutrophils % (Manual) 89, Lymphocytes % (Manual) 6, Monocytes % (Manual) 5, Eosinophils % (Manual) 0, Basophils % (Manual) 0, Band Neutrophils 0, Blood Morphology Comment NORMAL, Sodium Level 134L, Potassium Level 4.2, Chloride Level 105, Carbon Dioxide Level 19L, Anion Gap 10, Blood Urea Nitrogen 46H, Creatinine 1.41H, Estimat Glomerular Filtration Rate 49, BUN/Creatinine Ratio 33, Glucose Level 179H, Calcium Level 9.6, Corrected Calcium 10.2H, Total Bilirubin 1.9H, Aspartate Amino Transf (AST/SGOT) 212H, Alanine Aminotransferase (ALT/SGPT) 63H, Alkaline Phosphatase 50, Total Creatine Kinase 3922H, Total Protein 5.8L, Albumin 3.3 05/23/23 05:20: White Blood Count 9.9, Red Blood Count 3.17L, Hemoglobin 9.7L, Hematocrit 30L, Mean Corpuscular Volume 94, Mean Corpuscular Hemoglobin 31, Mean Corpuscular Hemoglobin Concent 33, Red Cell Distribution Width 13.2, Platelet Count 156, Mean Platelet Volume 10.9, Immature Granulocyte % (Auto) 1, Neutrophils (%) (Auto) 76H, Lymphocytes (%) (Auto) 13, Monocytes (%) (Auto) 8, Eosinophils (%) (Auto) 2, Basophils (%) (Auto) 0, Neutrophils # (Auto) 7.5, Lymphocytes # (Auto) 1.3, Monocytes # (Auto) 0.8, Eosinophils # (Auto) 0.2, Basophils # (Auto) 0.0, Immature Granulocyte # (Auto) 0.1, Sodium Level 134L, Potassium Level 3.8, Chloride Level 108H, Carbon Dioxide Level 19L, Anion Gap 7, Blood Urea Nitrogen 29H, Creatinine 1.10, Estimat Glomerular Filtration Rate 67, BUN/Creatinine Ratio 26, Glucose Level 186H, Calcium Level 9.2, Corrected Calcium 10.0, Total Bilirubin 1.1H, Aspartate Amino Transf (AST/SGOT) 135H, Alanine Aminotransferase (ALT/SGPT) 56H, Alkaline Phosphatase 49, Total Creatine Kinase 1075H, Total Protein 5.4L, Albumin 3.0L 05/24/23 05:37: White Blood Count 11.2H, Red Blood Count 3.40L, Hemoglobin 10.5L, Hematocrit 32L , Mean Corpuscular Volume 95, Mean Corpuscular Hemoglobin 31, Mean Corpuscular Hemoglobin Concent 33, Red Cell Distribution Width 13.2, Platelet Count 160, Mean Platelet Volume 10.7, Immature Granulocyte % (Auto) 0, Neutrophils (%) (Auto) 79H, Lymphocytes (%) (Auto) 10L, Monocytes (%) (Auto) 8, Eosinophils (%) (Auto) 3, Basophils (%) (Auto) 0, Neutrophils # (Auto) 8.9H, Lymphocytes # (Auto) 1.1, Monocytes # (Auto) 0.9, Eosinophils # (Auto) 0.3, Basophils # (Auto) 0.1, Immature Granulocyte # (Auto) 0.0, Sodium Level 135, Potassium Level 4.0, Chloride Level 108H, Carbon Dioxide Level 20L, Anion Gap 7, Blood Urea Nitrogen 21H, Creatinine 1.15, Estimat Glomerular Filtration Rate 63, BUN/Creatinine Ratio 18, Glucose Level 161H, Calcium Level 9.3, Corrected Calcium 10.0, Total Bilirubin 1.1H, Aspartate Amino Transf (AST/SGOT) 96H, Alanine Aminotransferase (ALT/SGPT) 60H, Alkaline Phosphatase 52, Total Creatine Kinase 491H, Total Protein 5.6L, Albumin 3.1L 05/25/23 05:15: White Blood Count 11.3H, Red Blood Count 3.10L, Hemoglobin 9.6L, Hematocrit 29L, Mean Corpuscular Volume 94, Mean Corpuscular Hemoglobin 31, Mean Corpuscular Hemoglobin Concent 33, Red Cell Distribution Width 13.3, Platelet Count 152, Mean Platelet Volume 10.7, Immature Granulocyte % (Auto) 0, Neutrophils (%) (Auto) 78H, Lymphocytes (%) (Auto) 11L, Monocytes (%) (Auto) 9, Eosinophils (%) (Auto) 2, Basophils (%) (Auto) 0, Neutrophils # (Auto) 8.9H, Lymphocytes # (Auto) 1.2, Monocytes # (Auto) 1.0, Eosinophils # (Auto) 0.2, Basophils # (Auto) 0.0, Immature Granulocyte # (Auto) 0.0, Sodium Level 136, Potassium Level 3.5L, Chloride Level 108H, Carbon Dioxide Level 20L, Anion Gap 8, Blood Urea Nitrogen 19H, Creatinine 1.04, Estimat Glomerular Filtration Rate 71, BUN/Creatinine Ratio 18, Glucose Level 152H, Calcium Level 9.3, Corrected Calcium 10.0, Total Bilirubin 1.3H, Aspartate Amino Transf (AST/SGOT) 64H, Alanine Aminotransferase (ALT/SGPT) 57H, Alkaline Phosphatase 52, Total Creatine Kinase 301H, Total Protein 5.7L, Albumin 3.1L 05/25/23 17:00: Urine Color YELLOW, Urine Clarity CLOUDY, Urine pH 5.5, Urine Specific [place] 1.025H, Urine Protein 2+H, Urine Glucose (UA) NEGATIVE, Urine Ketones TRACEH, Urine Nitrite POSITIVEH, Urine Bilirubin NEGATIVE, Urine Urobilinogen 1.0, Urine Leukocyte Esterase 1+H, Urine RBC (Auto) 3+H, Urine RBC 2-5H, Urine WBC TNTCH, Urine Squamous Epithelial Cells 5-10, Urine Crystals NONE, Urine Bacteria LARGEH , Urine Casts NONE, Urine Mucus NEGATIVE, Urine Culture Indicated YES 05/26/23 05:26: White Blood Count 10.8, Red Blood Count 3.21L, Hemoglobin 9.9L, Hematocrit 30L, Mean Corpuscular Volume 94, Mean Corpuscular Hemoglobin 31, Mean Corpuscular Hem oglobin Concent 33, Red Cell Distribution Width 13.3, Platelet Count 164, Mean Platelet Volume 10.7, Immature Granulocyte % (Auto) 1, Neutrophils (%) (Auto) 73, Lymphocytes (%) (Auto) 12, Monocytes (%) (Auto) 9, Eosinophils (%) (Auto) 4, Basophils (%) (Auto) 0, Neutrophils # (Auto) 8.0H, Lymphocytes # (Auto) 1.3, Monocytes # (Auto) 1.0, Eosinophils # (Auto) 0.5H, Basophils # (Auto) 0.0, Immature Granulocyte # (Auto) 0.1, Sodium Level 135, Potassium Level 3.8, Chlori de Level 106, Carbon Dioxide Level 19L, Anion Gap 10, Blood Urea Nitrogen 22H, Creatinine 1.09, Estimat Glomerular Filtration Rate 67, BUN/Creatinine Ratio 20, Glucose Level 142H, Calcium Level 9.3, Corrected Calcium 10.0, Total Bilirubin 1.0, Aspartate Amino Transf (AST/SGOT) 45H, Alanine Aminotransferase (ALT/SGPT) 52, Alkaline Phosphatase 52, Total Creatine Kinase 159, Total Protein 5.7L, A lbumin 3.1L Microbiology 05/25/23 Urine Culture - Preliminary, Resulted Probable E.coli Pending Labs Microbiology Date/Time Source Procedure Growth Status 05/25/23 17:00 Urine Clean Catch Urine Culture - Preliminary Probable E.coli Resulted Laboratory Tests 05/22/23 05:40: White Blood Count 14.3, Red Blood Count 3.27, Hemoglobin 10.2, Hematocrit 31, Mean Corpuscular Volume 93, Mean Corpuscular Hemoglobin 31, Mean Corpuscular Hemoglobin Concent 33, Red Cell Distribution Width 13.3, Platelet Count 185, Mean Platelet Volume 10.9, Immature Granulocyte % (Auto) 0, Neutrophils (%) (Auto) 84, Lymphocytes (%) (Auto) 8, Monocytes (%) (Auto) 7, Eosinophils (%) (Auto) 0, Basophils (%) (Auto) 0, Neutrophils # (Auto) 12.1, Lymphocytes # (Auto) 1.1, Monocytes # (Auto) 1.0, Eosinophils # (Auto) 0.0, Basophils # (Auto) 0.0, Immature Granulocyte # (Auto) 0.0, Neutrophils % (Manual) 89, Lymphocytes % (Manual) 6, Monocytes % (Manual) 5, Eosinophils % (Manual) 0, Basophils % (Manual) 0, Band Neutrophils 0, Blood Morphology Comment NORMAL, Sodium Level 134, Potassium Level 4.2, Chloride Level 105, Carbon Dioxide Level 19, Anion Gap 10, Blood Urea Nitrogen 46, Creatinine 1.41, Estimat Glomerular Filtration Rate 49, BUN/Creatinine Ratio 33, Glucose Level 179, Calcium Level 9.6, Corrected Calcium 10.2, Total Bilirubin 1.9, Aspartate Amino Transf (AST/SGOT) 212, Alanine Aminotransferase (ALT/SGPT) 63, Alkaline Phosphatase 50, Total Creatine Kinase 3922, Total Protein 5.8, Albumin 3.3 05/23/23 05:20: White Blood Count 9.9, Red Blood Count 3.17, Hemoglobin 9.7, Hematocrit 30, Mean Corpuscular Volume 94, Mean Corpuscular Hemoglobin 31, Mean Corpuscular He moglobin Concent 33, Red Cell Distribution Width 13.2, Platelet Count 156, Mean Platelet Volume 10.9, Immature Granulocyte % (Auto) 1, Neutrophils (%) (Auto) 76, Lymphocytes (%) (Auto) 13, Monocytes (%) (Auto) 8, Eosinophils (%) (Auto) 2, Basophils (%) (Auto) 0, Neutrophils # (Auto) 7.5, Lymphocytes # (Auto) 1.3, Monocytes # (Auto) 0.8, Eosinophils # (Auto) 0.2, Basophils # (Auto) 0.0, Immature Granulocyte # (Auto) 0.1, Sodium Level 134, Potassium Level 3.8, Chloride Level 108, Carbon Dioxide Level 19, Anion Gap 7, Blood Urea Nitrogen 29, Creatinine 1.10, Estimat Glomerular Filtration Rate 67, BUN/Creatinine Ratio 26, Glucose Level 186, Calcium Level 9.2, Corrected Calcium 10.0, Total Bilirubin 1.1, Aspartate Amino Transf (AST/SGOT) 135, Alanine Aminotransferase (ALT/SGPT) 56, Alkaline Phosphatase 49, Total Creatine Kinase 1075, Total Protein 5.4, Albumin 3.0 05/24/23 05:37: White Blood Count 11.2, Red Blood Count 3.40, Hemoglobin 10.5, Hematocrit 32, Mean Corpuscular Volume 95, Mean Corpuscular Hemoglobin 31, Mean Corpuscular Hemoglobin Concent 33, Red Cell Distribution Width 13.2, Platelet Count 160, Mean Platelet Volume 10.7, Immature Granulocyte % (Auto) 0, Neutrophils (%) (Auto) 79, Lymphocytes (%) (Auto) 10, Monocytes (%) (Auto) 8, Eosinophils (%) (Auto) 3, Basophils (%) (Auto) 0, Neutrophils # (Auto) 8.9, Lymphocytes # (Auto) 1.1, Monocytes # (Auto) 0.9, Eosinophils # (Auto) 0.3, Basophils # (Auto) 0.1, Immature Granulocyte # (Auto) 0.0, Sodium Level 135, Potassium Level 4.0, Chlori de Level 108, Carbon Dioxide Level 20, Anion Gap 7, Blood Urea Nitrogen 21, Creatinine 1.15, Estimat Glomerular Filtration Rate 63, BUN/Creatinine Ratio 18, Glucose Level 161, Calcium Level 9.3, Corrected Calcium 10.0, Total Bilirubin 1.1, Aspartate Amino Transf (AST/SGOT) 96, Alanine Aminotransferase (ALT/SGPT) 60, Alkaline Phosphatase 52, Total Creatine Kinase 491, Total Protein 5.6, Albumin 3.1 05/25/23 05:15: White Blood Count 11.3, Red Blood Count 3.10, Hemoglobin 9.6, Hematocrit 29, Mean Corpuscular Volume 94, Mean Corpuscular Hemoglobin 31, Mean Corpuscular Hemoglobin Concent 33, Red Cell Distribution Width 13.3, Platelet Count 152, Mean Platelet Volume 10.7, Immature Granulocyte % (Auto) 0, Neutrophils (%) (Auto) 78, Lymphocytes (%) (Auto) 11, Monocytes (%) (Auto) 9, Eosinophils (%) (Auto) 2, Basophils (%) (Auto) 0, Neutrophils # (Auto) 8.9, Lymphocytes # (Auto) 1.2, Monocytes # (Auto) 1.0, Eosinophils # (Auto) 0.2, Basophils # (Auto) 0.0, Immature Granulocyte # (Auto) 0.0, Sodium Level 136, Potassium Level 3.5, Chloride Level 108, Carbon Dioxide Level 20, Anion Gap 8, Blood Urea Nitrogen 19, Creatinine 1.04, Estimat Glomerular Filtration Rate 71, BUN/Creatinine Ratio 18, Glucose Level 152, Calcium Level 9.3, Corrected Calcium 10.0, Total Bilirubin 1.3, Aspartate Amino Transf (AST/SGOT) 64, Alanine Aminotransferase (ALT/SGPT) 57, Alkaline Phosphatase 52, Total Creatine Kinase 301, Total Protein 5.7, Albumin 3.1 05/25/23 17:00: Urine Color YELLOW, Urine Clarity CLOUDY, Urine pH 5.5, Urine Specific [place] 1.025, Urine Protein 2+, Urine Glucose (UA) NEGATIVE, Urine Ketones TRACE, Urine Nitrite POSITIVE, Urine Bilirubin NEGATIVE, Urine Urobilinogen 1.0, Urine Leukocyte Esterase 1+, Urine RBC (Auto) 3+, Urine RBC 2-5, Urine WBC TNTC, Urine Squamous Epithelial Cells 5-10, Urine Crystals NONE, Urine Bacteria LARGE, Urine Casts NONE, Urine Mucus NEGATIVE, Urine Culture Indicated YES 05/26/23 05:26: White Blood Count 10.8, Red Blood Count 3.21, Hemoglobin 9.9, Hematocrit 30, Mean Corpuscular Volume 94, Mean Corpuscular Hemoglobin 31, Mean Corpuscular Hemoglobin Concent 33, Red Cell Distribution Width 13.3, Platelet Count 164, Mean Platelet Volume 10.7, Immature Granulocyte % (Auto) 1, Neutrophils (%) (Auto) 73, Lymphocytes (%) (Auto) 12, Monocytes (%) (Auto) 9, Eosinophils (%) (Auto) 4, Basophils (%) (Auto) 0, Neutrophils # (Auto) 8.0, Lymphocytes # (Auto) 1.3, Monocytes # (Auto) 1.0, Eosinophils # (Auto) 0.5, Basophils # (Auto) 0.0, Immature Granulocyte # (Auto) 0.1, Sodium Level 135, Potassium Level 3.8, Chloride Level 106, Carbon Dioxide Level 19, Anion Gap 10, Blood Urea Nitrogen 22, Creatinine 1.09, Estimat Glomerular Filtration Rate 67, BUN/Creatinine Ratio 20, Glucose Level 142, Calcium Level 9.3, Corrected Calcium 10.0, Total Bilirubin 1.0, Aspartate Amino Transf (AST/SGOT) 45, Alanine Aminotransferase (ALT/SGPT) 52, Alkaline Phosphatase 52, Total Creatine Kinase 159, Total Protein 5.7, Albumin 3.1 Discharge Home Medications: Active Scripts Active Ocuflox (Ofloxacin) 0.3 % Soln 0 Ml OP BID twice daily Cefdinir 300 Mg Capsule 300 Mg PO BID Reported Metformin HCl 500 Mg Tablet 500 Mg PO 1700 Venlafaxine HCl ER (Venlafaxine HCl) 75 Mg Cap.er.24h 75 Mg PO 1700 Vitamin D3 (Cholecalciferol (Vitamin D3)) 125 Mcg (5000 Unit) Tablet 125 Mcg PO DAILY Tylenol (Acetaminophen) 325 Mg Tablet 650 Mg PO Q6H PRN Meloxicam 15 Mg Tablet 15 Mg PO DAILY Finasteride 5 Mg Tablet 5 Mg PO HS Enalapril Maleate 10 Mg Tablet 10 Mg PO 1700 Citalopram HBr (Citalopram Hydrobromide) 20 Mg Tablet 20 Mg PO 1700 Atorvastatin Calcium 20 Mg Tablet 20 Mg PO HS Aspirin EC (Aspirin) 81 Mg Tablet.dr 81 Mg PO 1700 Allopurinol 300 Mg Tablet 300 Mg PO 1700 Instructions to patient/family Please see electronic discharge instructions given to patient. REEMA AJ DO May 26, 2023 12:20
--- NOTE | 2023-05-29 22:44 | Physician Query Clarification ---
PQ-Further Specificity Admission/Discharge Admission Date: May 21, 2023 at 23:14 Discharge Date: May 26, 2023 at 15:40 The medical record reflects the following clinical scenario: History/Risk Factors: 82 years old male patient presented with rhabdomyalysis,this is related to his fall and remaining outside the ground extended period of time. Hand P, 05/21: Rhabdomyalysis, THIAGO, hypertension. Progress notes, 05/23: Rhabdomyalysis, THIAGO, hypertension. Clinical Findings: CPK - 3911, creatinine - 1.41, found down his back yard. Treatment: IV fluids Question: Can you further specify rhabdomyalysis per the clinical indicators above? Please document a response in the Progress Notes or Discharge Summary. 1. Traumatic rhabdomyalysis 2. Non- traumatic rhabdomyalysis 3. Other, with explanation of the clinical findings. PHYSICIAN RESPONSE Can you specify per above: 1 In responding to this query, please exercise your independent professional judgment. The purpose of this communication is to more accurately reflect the complexity of your patients condition. The fact that a question is asked does not imply that any particular answer is desired or expected. Thank you for your timely response to this clarification. Requestors name: [ ] Phone # [ ] THIS PHYSICIAN QUERY FORM IS A PERMANENT PART OF THE MEDICAL RECORD JAVIER ALFONSO May 29, 2023 22:44 REEMA PATEL DO May 30, 2023 05:02
== END 2023-05-26 15:40 | disposition home health service (06) | DRG 565 ==
LOC: 4TH 23:14
PROVIDERS: ADMIT Internal Medicine; ATTEND Internal Medicine
DX: T79.6XXA Traumatic ischemia of muscle, initial encounter (principal); N17.9 Acute kidney failure, unspecified; I10 Essential (primary) hypertension; I35.0 Nonrheumatic aortic (valve) stenosis; E11.40 Type 2 diabetes mellitus with diabetic neuropathy, unspecified; E78.00 Pure hypercholesterolemia, unspecified; G89.29 Other chronic pain; M54.9 Dorsalgia, unspecified; F32.A Depression, unspecified; M48.00 Spinal stenosis, site unspecified; H60.93 Unspecified otitis externa, bilateral; I95.9 Hypotension, unspecified; W18.30XA Fall on same level, unspecified, initial encounter; Y92.89 Other specified places as the place of occurrence of the external cause
CPT/HCPCS: 36415; 80048; 80053; 81000; 82550; 85007; 85025; 85027; 87077; 87088; 87186